=== PATIENT | female | born 1945 | race Caucasian/White ===

== ENCOUNTER 2019-06-02 10:33 | Emergency (ER) | payer OTHER | END 2019-06-02 13:39 | disposition home or self-care (01) | LOC: FER 10:33 ==

== ENCOUNTER 2019-10-03 12:21 | Inpatient (IN) | payer OTHER ==
--- NOTE | 2019-10-03 13:12 | PDOC ---
Attending Attestation - Resident Resident Name: Darryl Ko - HPI HPI: 10/03/19 13:39 Pt presents to the ED complaining of substernal, non radiating chest pain that is moderate in severity and worse with laying flat and exertion. Denies shortness of breath, light headness, fever, nausea or vomiting. Patient has a history of pericarditis and states that this pain is similar to her previous pain, but also took ASA last night because she was worried that she might be having an ND. - Physicial Exam PE: 10/03/19 13:43 Agree with resident exam. Patient is alert and oriented and in no acute distress. Lungs are clear. Heart has regular rate and rhythm without murmurs or rubs. Abdomen is soft, non tender, non distended without guarding or rebound. - Medical Decision Making 10/03/19 13:44 PT presents to the ED complaining of chest pain. Differential includes ACS, pericardititis, musculo skeletal chest pain, less likely PNA or PE. Will check labs and xray treat with ASA and reassess. EKG shows flipped T waves in v 2 and v 3. Will admit to medicine for rule out ACS.
[2019-10-03] MEDS ORDERED: ACETAMINOPHEN 325 MG TABLET (FP) PO ONE (13:20)
--- NOTE | 2019-10-03 13:21 | PDOC ---
History of Present Illness - General Chief Complaint: Chest Pain Stated Complaint: CHEST PAIN Time Seen by Provider: 10/03/19 13:04 History Source: Patient, Old Records Exam Limitations: No Limitations - History of Present Illness Initial Comments: HPI: 73 y/o female presenting to [facility] ER complaining of substernal and left anterolateral chest pain since last evening. Substernal chest pain has decreased in intensity since onset. Started at rest. Increases in intensity when laying flat, with deep inspiration, and with exertion. Denies trauma to the area. Associates shortness of breath and a two hour episode of chills and shaking last evening. Attempted relief last night with ASA and Tylenol w/ minimal relief. Additionally attempted relief this morning with Motrin w/ minimal relief. Pt has a remote h/o pericarditis. Believes pain feels somewhat similar. 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 Denies fevers Head- Denies vision changes ENMT- Denies sore throat CV- Per HPI Resp- Denies cough GI- Denies vomiting or diarrhea - Denies painful urination MSK- Denies recent trauma Skin- Denies new rashes Neuro- Denies new numbness or tingling or weakness Endocrine- Denies polyuria Heme- Denies bleeding or bruising Physical Exam: Vital signs and nursing notes reviewed. Constitutional- Well-developed, well-nourished adult female in no acute distress or obvious discomfort. Found semi-fowlers on hospital bed. Answered all questions appropriately and completely. Head- Normocephalic. No obvious external signs of trauma. Cardiovascular / Chest- Regular rate and regular rhythm. No murmur, rubs, clicks , or gallops. Peripheral pulses- radial pulses full. Diffuse tenderness to left anterolateral chest wall; no point tenderness, obvious bony deformity, or overlying skin changes. Midline post surgical scar. Respiratory- Breathing unlabored, but mildly tachypneic. Equal chest rise and fall. Clear to auscultation bilaterally. No stridor, no wheezing, no rhonchi. Gastrointestinal- abdomen is soft, non-tender, non-distended. Neuro- Alert and oriented x4. Moving all four extremities spontaneously. Skin- Warm, dry, and intact. Psych- Affect- appropriate. Mood- normal. Speech was non-labored, non- pressured. MDM: National Early Warning Score (NEWS) 2 RESULT SUMMARY: 2 points, Low risk INPUTS: Respiratory rate, breaths per minute > 2 = 21-24 Hypercapnic respiratory failure > 0 = No SpO? > 0 = ?96% Room air or supplemental O? > 0 = Room air Temperature > 0 = 36.1-38.0C (96.9-100.4F) Systolic BP, mmHg > 0 = 111-219 Pulse, beats per minute > 0 = 51-90 Consciousness > 0 = Alert 73 y/o female presenting with chest pain and shortness of breath. Afebrile. Vitals unremarkable for hypotension or tachycardia. Physical exam as described above. CXR revealed left lower lobe consolidation concerning for pneumonia per ED wet read. Radiology report pending. CBC revealed leukocytosis. CMP revealed elevated Cr suspicion for NITESH. Ordered IVFB, Ceftriaxone, and Azithromycin for abx coverage. Pt meets SIRS criteria, however her NEWS-2 score is low. Low suspicion for pending septic shock. Ordered lactic acid and blood cultures per protocol. Abx had already been administered at time of blood culture draw. 03 Oct 2019 14:59 PM Telephone discussion with Dr. Kim. Verbally appraised of the pts HPI, ED course, and current plan of management. Suggests pt should be admitted for IV abx therapy. 03 Oct 2019 15:35 PM Telephone discussion with ELIE Dunn . Verbally appraised of the pts HPI, ED course, and current plan of management. Will admit pt to med/ surg for attending Dr. Perkins. Initial lactic acid result pending. Darryl Ko M.D., PGY2 Emergency Medicine Resident Past History - Past Medical History Allergies/Adverse Reactions: Allergies Allergy/AdvReac Type Severity Reaction Status Date / Time No Known Drug Allergies Allergy Verified 10/03/19 14:39 Home Medications: Ambulatory Orders Valsartan [Diovan] 320 mg PO DAILY 12/06/12 Cholecalciferol (Vitamin D3) [Vitamin D] 50 mcg PO DAILY 07/31/14 Aspirin [Aspirin EC] 81 mg PO DAILY 06/02/19 Atorvastatin Ca [Lipitor] 20 mg PO DAILY 06/02/19 Metformin HCl [Glucophage] 1,000 mg PO BID 06/02/19 Ranitidine [Zantac -] 150 mg PO BID 06/02/19 Topiramate [Qudexy Xr] 50 mg PO BID 06/02/19 Furosemide [Lasix] 40 mg PO ASDIR 10/03/19 Nebivolol HCl [Bystolic] 10 mg PO DAILY 10/03/19 Potassium Chloride [K-Dur -] 10 meq PO ASDIR 10/03/19 Anemia: No Asthma: No Cancer: No Cardiac Disorders: Yes (A Flutter) CVA: No COPD: No CHF: No Dementia: No Diabetes: Yes GI Disorders: No Disorders: No HTN: Yes Hypercholesterolemia: No Liver Disease: No Seizures: No Thyroid Disease: No - Surgical History Abdominal Surgery: No Appendectomy: No Cardiac Surgery: Yes Cholecystectomy: Yes Lung Surgery: Yes (L LUNG BX) Neurologic Surgery: No Orthopedic Surgery: No - Immunization History Immunization Up to Date: Yes - Psycho Social/Smoking Cessation Hx Smoking Status: No Smoking History: Former smoker Have you smoked in the past 12 months: No Number of Cigarettes Smoked Daily: 0 If you are a former smoker, when did you quit?: 1994 Information on smoking cessation initiated: No Hx Alcohol Use: No Drug/Substance Use Hx: No Substance Use Type: None Hx Substance Use Treatment: No *Physical Exam - Vital Signs Last Vital Signs Temp Pulse Resp BP Pulse Ox 97.8 F 73 22 H 107/63 96 10/03/19 12:56 10/03/19 12:56 10/03/19 12:56 10/03/19 12:56 10/03/19 12:56 ED Treatment Course - LABORATORY CBC & Chemistry Diagram: 10/03/19 13:50 10/03/19 13:50 - RADIOLOGY Radiology Studies Ordered: Category Date Time Status CHEST PA & LAT [RAD] Stat Radiology 10/03/19 13:19 Ordered RIBS-LEFT SIDE [RAD] Stat Radiology 10/03/19 13:20 Ordered Discharge - Discharge Information Problems reviewed: Yes Clinical Impression/Diagnosis: SIRS (systemic inflammatory response syndrome), NITESH (acute kidney injury) Pneumonia Qualifiers: Pneumonia type: due to unspecified organism Laterality: left Lung location: lower lobe of lung Qualified Code(s): J18.9 - Pneumonia, unspecified organism Leukocytosis Qualifiers: Leukocytosis type: unspecified Qualified Code(s): D72.829 - Elevated white blood cell count, unspecified Condition: Stable - Admission Yes - Follow up/Referral Referrals: Iker Ferraro MD [Primary Care Provider] - - Patient Discharge Instructions - Post Discharge Activity
[2019-10-03] MEDS ORDERED: ASPIRIN 81 MG CHEWABLE TABLETS PO ONE (13:35)
[2019-10-03] MEDS ORDERED: ACETAMINOPHEN 325 MG TABLET (FP) ONE (13:35)
[2019-10-03] MEDS ORDERED: ASPIRIN 81 MG CHEWABLE TABLETS ONE (13:40)
[2019-10-03 14:19] LABS: BASO % 0.2 % (0-2.0); HEMATOCRIT 37.5 % (32.4-45.2); HEMOGLOBIN 12.2 GM/dL (10.7-15.3); LYMPH % 6.5 % (8-40); MCH 30.2 pg (25.7-33.7); MCHC 32.5 g/dl (32.0-36.0); MEAN PLT VOLUME 8.7 fl (7.5-11.1); MONO % 8.1 % (3.8-10.2); NEUT % 85.2 % (42.8-82.8); PLATELET COUNT 247 K/MM3 (134-434); RBC 4.03 M/mm3 (3.60-5.2); RDW 13.4 % (11.6-15.6); WHITE BLOOD COUNT 18.8 K/mm3 (4.0-10.0)
[2019-10-03 14:33] LABS: INR 1.6 (0.83-1.09)
[2019-10-03 14:35] LABS: ACTIVATED PTT 34.8 SECONDS (25.2-36.5)
[2019-10-03] MEDS ORDERED: AZITHROMYCIN IVPB 500 MG in DEXTROSE 5%-WATER - 250 ML IVPB ONE (14:42)
[2019-10-03] MEDS ORDERED: CEFTRIAXONE 1,000 MG in DEXTROSE 5%-WATER - 50 ML IVPB ONE (14:43)
[2019-10-03] MEDS ORDERED: CEFTRIAXONE 1 GM/50 ML BAG ONE (14:47)
[2019-10-03] MEDS ORDERED: AZITHROMYCIN IVPB 500 MG/250 ML BAG IVPB ONE (14:48)
[2019-10-03 14:50] LABS: ALBUMIN 3.3 g/dl (3.4-5.0); BILIRUBIN,TOTAL 0.6 mg/dL (0.2-1); BLOOD UREA NITROGEN 25.6 mg/dL (7-18); CALCIUM 10.1 mg/dL (8.5-10.1); CREATININE 1.5 mg/dL (0.55-1.3); MAGNESIUM 1.7 mg/dL (1.8-2.4); PHOSPHOROUS 1.8 mg/dL (2.5-4.9); POTASSIUM 4.2 mmol/L (3.5-5.1); TOT PROT 6.4 g/dl (6.4-8.2)
[2019-10-03] MEDS ORDERED: SODIUM CHLORIDE 0.9% 500 ML INFUS.BAG IV ONE ×2 (14:56→15:12)
[2019-10-03 16:17] LABS: ERYTHROCYTE SEDIMENTATION RATE 44 mm/hr (0-30)
--- NOTE | 2019-10-03 17:47 | HP ---
CHIEF COMPLAINT: shortness of breath with inspiration and physical activity, shaking chills and malaise at home PCP: Dr. Ferraro PCP Dr. Shannon, parts room associate HISTORY OF PRESENT ILLNESS: Patient is a 73 year old female with a significant past medical history of hypertension, left lung mass s/p biopsy 10 years ago, diabetes, remote history of pericarditis. She presents to the ED today with complaints of substernal and left anterlateral chest pain since last night. Patient states her chest pain increases when laying flat, and with deep inspiration. She denies trauma. Reports shaking chills last evening, tried OTC medications without relief (ASA , Tylenol). She reports dyspnea with physical exertion and discomfort when taking in a deep breath. Chest xray on admission shows large left pleural effusion, a chest CT is ordered to further evaluate. ER course was notable for: (1) lactc acid 3.5, wbc 18.8 (2) chest xray with large left pleural effusion, for chest ct (3) hypotension @ 90/60s in the ED - given ceftriaxone, azithromycin (4) NITESH 25/1.5 Recent Travel: none PAST MEDICAL HISTORY: hypertension, left lung mass s/p biopsy 10 years ago, diabetes, remote history of pericarditis. Social History: Smoking: former smoker, quit 20 years ago Alcohol: denies Drugs: denies Allergies No Known Drug Allergies Allergy (Verified 10/03/19 14:39) HOME MEDICATIONS: Home Medications Medication Instructions Recorded Valsartan [Diovan] 320 mg PO DAILY 12/06/12 Cholecalciferol (Vitamin D3) 50 mcg PO DAILY 07/31/14 [Vitamin D] Aspirin [Aspirin EC] 81 mg PO DAILY 06/02/19 Atorvastatin Ca [Lipitor] 20 mg PO DAILY 06/02/19 Metformin HCl [Glucophage] 1,000 mg PO BID 06/02/19 Ranitidine [Zantac -] 150 mg PO BID 06/02/19 Topiramate [Qudexy Xr] 50 mg PO BID 06/02/19 Furosemide [Lasix] 40 mg PO ASDIR 10/03/19 Nebivolol HCl [Bystolic] 10 mg PO DAILY 10/03/19 Potassium Chloride [K-Dur -] 10 meq PO ASDIR 10/03/19 REVIEW OF SYSTEMS CONSTITUTIONAL: Absent: fever, diaphoresis, loss of appetite, weight change HEENT: Absent: rhinorrhea, nasal congestion, throat pain, throat swelling, difficulty swallowing, mouth swelling, ear pain, eye pain, visual changes CARDIOVASCULAR: Absent: syncope, palpitations, irregular heart rate, lightheadedness, peripheral edema RESPIRATORY: Absent: cough, shortness of breath, dyspnea with exertion, orthopnea, wheezing, stridor, hemoptysis GASTROINTESTINAL: Absent: abdominal pain, abdominal distension, nausea, vomiting, diarrhea, constipation, melena, hematochezia GENITOURINARY: Absent: dysuria, frequency, urgency, hesitancy, hematuria, flank pain, genital pain MUSCULOSKELETAL: Absent: myalgia, arthralgia, joint swelling, back pain, neck pain SKIN: Absent: rash, itching, pallor HEMATOLOGIC/IMMUNOLOGIC: Absent: easy bleeding, easy bruising, lymphadenopathy, frequent infections ENDOCRINE: Absent: unexplained weight gain, unexplained weight loss, heat intolerance, cold intolerance NEUROLOGIC: Absent: headache, focal weakness or paresthesias, dizziness, unsteady gait, seizure, mental status changes, bladder or bowel incontinence PSYCHIATRIC: Absent: anxiety, depression, suicidal or homicidal ideation, hallucinations. PHYSICAL EXAMINATION Vital Signs - 24 hr 10/03/19 10/03/19 10/03/19 12:56 14:28 15:55 Temperature 97.8 F 97.6 F Pulse Rate 66 66 Pulse Rate [ 73 66 Left Radial] Respiratory 22 H 22 H Rate Blood Pressure 107/63 Blood Pressure 107/63 93/34 L [Right Arm] O2 Sat by Pulse 96 96 98 Oximetry (%) 10/03/19 17:06 Temperature 98.5 F Pulse Rate Pulse Rate [ 66 Left Radial] Respiratory 19 Rate Blood Pressure Blood Pressure 93/37 L [Right Arm] O2 Sat by Pulse 99 Oximetry (%) GENERAL: Awake, alert, and fully oriented, in no acute distress. tolerating room air. HEAD: Normal with no signs of trauma. EYES: Pupils equal, round and reactive to light, extraocular movements intact, sclera anicteric, conjunctiva clear. No lid lag. EARS, NOSE, THROAT: Ears normal, nares patent, oropharynx clear without exudates. Moist mucous membranes. NECK: Normal range of motion, supple without lymphadenopathy, JVD, or masses. LUNGS: left lung diminished, right lung clear to auscultation, tolerating room air. in respiratory distress noted. HEART: Regular rate and rhythm ABDOMEN: Soft, nontender, not distended, normoactive bowel sounds, no guarding, no rebound, no masses. No hepatomegaly or splenomegaly. MUSCULOSKELETAL: No CVA tenderness. UPPER EXTREMITIES: No clubbing. No peripheral edema. LOWER EXTREMITIES: No calf tenderness. No peripheral edema. NEUROLOGICAL: Normal speech. Normal gait. PSYCHIATRIC: Cooperative. Good eye contact. Appropriate mood and affect. SKIN: Warm, dry, normal turgor, no rashes or lesions noted, normal capillary refill. Laboratory Results - last 24 hr 10/03/19 10/03/19 10/03/19 13:50 13:50 13:50 WBC 18.8 H RBC 4.03 Hgb 12.2 Hct 37.5 MCV 93.0 MCH 30.2 MCHC 32.5 RDW 13.4 Plt Count 247 D MPV 8.7 Absolute Neuts (auto) 16.0 H Neutrophils % 85.2 H Lymphocytes % 6.5 L D Monocytes % 8.1 Eosinophils % 0.0 D Basophils % 0.2 Nucleated RBC % 0 ESR 44 H PT with INR INR PTT (Actin FS) Sodium 140 Potassium 4.2 Chloride 108 H Carbon Dioxide 22 Anion Gap 10 BUN 25.6 H Creatinine 1.5 H Est GFR (CKD-EPI)AfAm 40.20 Est GFR (CKD-EPI)NonAf 34.69 Random Glucose 108 H Lactic Acid Calcium 10.1 Phosphorus 1.8 L Magnesium 1.7 L Total Bilirubin 0.6 AST 14 L ALT 13 Alkaline Phosphatase 63 Creatine Kinase 36 Troponin I < 0.02 C-Reactive Protein Total Protein 6.4 Albumin 3.3 L 10/03/19 10/03/19 10/03/19 13:50 13:50 15:30 WBC RBC Hgb Hct MCV MCH MCHC RDW Plt Count MPV Absolute Neuts (auto) Neutrophils % Lymphocytes % Monocytes % Eosinophils % Basophils % Nucleated RBC % ESR PT with INR 19.00 H INR 1.60 H PTT (Actin FS) 34.8 Sodium Potassium Chloride Carbon Dioxide Anion Gap BUN Creatinine Est GFR (CKD-EPI)AfAm Est GFR (CKD-EPI)NonAf Random Glucose Lactic Acid 3.5 H* Calcium Phosphorus Magnesium Total Bilirubin AST ALT Alkaline Phosphatase Creatine Kinase Troponin I C-Reactive Protein 22.5 H Total Protein Albumin ASSESSMENT/PLAN: Problem List - Problem (1) Pneumonia Assessment/Plan: patient with shortness of breath, dyspnea on exertion, shaking chills and elevated WBC @ 18.8 for a chest to rule out/rule in pneumonia on emperic ceftriaxone and azithromycin monitor airway, tolerating room air currently. Code(s): J18.9 - PNEUMONIA, UNSPECIFIED ORGANISM Qualifiers: Pneumonia type: due to unspecified organism Laterality: left Lung location: lower lobe of lung Qualified Code(s): J18.9 - Pneumonia, unspecified organism (2) SIRS (systemic inflammatory response syndrome) Assessment/Plan: wbc elevated with shaking chills at home, possible left pneumonia on imaging, elevated lactic acid on ceftriaxone and azithromycin pulmonary consulted Code(s): R65.10 - SIRS OF NON-INFECTIOUS ORIGIN W/O ACUTE ORGAN DYSFUNCTION (3) Hypotension Assessment/Plan: Patient with a history of hypertension and takes diovan 320 and bystolic 10. BP medications are being held secondary to hypotension. Restart medications once BP stablizes. Code(s): I95.9 - HYPOTENSION, UNSPECIFIED (4) NITESH (acute kidney injury) Assessment/Plan: monitor kidney function daily renal dose medications Code(s): N17.9 - ACUTE KIDNEY FAILURE, UNSPECIFIED (5) Leukocytosis Assessment/Plan: WBC 18.8, chest xray with large left pleural effusion. for a chest ct given ceftriaxone and azithromycin in the ED. Will continu antibiotics pending ID recommendations. Qualifiers: Leukocytosis type: unspecified Qualified Code(s): D72.829 - Elevated white blood cell count, unspecified (6) Diabetes Assessment/Plan: monitor bgms ac/hs glucs with novolog coverage a1c in a.m. Code(s): E11.9 - TYPE 2 DIABETES MELLITUS WITHOUT COMPLICATIONS (7) Prophylactic measure Assessment/Plan: fen tolerating po monitor electrolytes/mag diabetic diet dvt prophy heparin bid full code Code(s): Z29.9 - ENCOUNTER FOR PROPHYLACTIC MEASURES, UNSPECIFIED Visit type - Emergency Visit Emergency Visit: Yes ED Registration Date: 10/03/19 Care time: The patient presented to the Emergency Department on the above date and was hospitalized for further evaluation of their emergent condition. - New Patient This patient is new to me today: Yes Date on this admission: 10/03/19 - Critical Care Critical Care patient: No
[2019-10-03] MEDS ORDERED: MAGNESIUM OXIDE 400 MG TABLET (FP) PO ONE (18:32)
[2019-10-03 18:37] VITALS: BMI 30.3
[2019-10-03] MEDS ORDERED: ACETAMINOPHEN 1000 MG/100 ML VIAL (NON FORMULARY) IVPB ONE (21:01)
[2019-10-03] MEDS: ATORVASTATIN CA 20 MG TABLET (FP) PO SCH (21:28)
[2019-10-03] MEDS: HEPARIN NA (PORCINE) 5,000 UNITS/ML 1ML VIAL SQ SCH (21:28)
[2019-10-03] MEDS: FAMOTIDINE 20 MG TABLET PO SCH (21:29)
[2019-10-03] MEDS: INSULIN SLIDING SCALE (NOVOLOG) 1 VIAL SQ SCH (21:38)
[2019-10-03] MEDS ORDERED: TOPIRAMATE 50 MG PO SCH (22:00)
[2019-10-03] MEDS ORDERED: SODIUM CHLORIDE 1,000 ML IV SCH (23:00)
[2019-10-04] MEDS ORDERED: PIPERACILLIN/TAZOBACTAM 3.375 GM VIAL IVPB ONE ×2 (01:36→09:34)
[2019-10-04] MEDS ORDERED: DEXTROSE 5%-WATER - 50 ML IVPB ONE ×3 (01:37→14:41)
[2019-10-04] MEDS: PIPERACILLIN/TAZOB 3.375 GM 3.375 GM in DEXTROSE 5%-WATER - 50 ML IVPB SCH ×2 (02:27→09:40)
[2019-10-04] MEDS: ACETAMINOPHEN 325 MG TABLET (FP) PO PRN (06:10)
[2019-10-04] MEDS: INSULIN SLIDING SCALE (NOVOLOG) 1 VIAL SQ SCH ×4 (06:30→22:05)
--- NOTE | 2019-10-04 08:07 | PN ---
Progress Note, Physician Chief Complaint: C/o substernal pain when coughing and inability to take deep breaths. But overall feels improved History of Present Illness: Patient is a 73 year old female with a significant past medical history of hypertension, left lung mass s/p biopsy 10 years ago, diabetes, remote history of pericarditis. She presents to the ED today with complaints of substernal and left anterlateral chest pain since last night. Patient states her chest pain increases when laying flat, and with deep inspiration. She denies trauma. Reports shaking chills last evening, tried OTC medications without relief (ASA , Tylenol). She reports dyspnea with physical exertion and discomfort when taking in a deep breath. Chest xray on admission shows large left pleural effusion, a chest CT is ordered to further evaluate. - Current Medication List Current Medications: Active Medications Acetaminophen (Tylenol -) 650 mg PO Q6H PRN PRN Reason: PAIN LEVEL 1-5 Last Admin: 10/04/19 06:10 Dose: 650 mg Aspirin (Ecotrin -) 81 mg PO DAILY [facility] Atorvastatin Calcium (Lipitor -) 20 mg PO HS [facility] Last Admin: 10/03/19 21:28 Dose: 20 mg Cholecalciferol (Vitamin D3 -) 2,000 unit PO DAILY [facility] Famotidine (Pepcid -) 20 mg PO BID [facility] Last Admin: 10/03/19 21:29 Dose: 20 mg Heparin Sodium (Porcine) (Heparin -) 5,000 unit SQ BID [facility] Last Admin: 10/03/19 21:28 Dose: 5,000 unit Azithromycin (Zithromax 500mg Ivpb (Pre-Docked)) 500 mg in 250 mls @ 250 mls/ hr IVPB DAILY [facility] Piperacillin Sod/Tazobactam (Sod 3.375 gm/ Dextrose) 50 mls @ 100 mls/hr IVPB Q8H-IV [facility]; Protocol Last Admin: 10/04/19 02:27 Dose: 100 mls/hr Sodium Chloride (Normal Saline -) 1,000 mls @ 50 mls/hr IV ASDIR [facility] Stop: 10/04/19 22:55 Last Admin: 10/03/19 23:02 Dose: 50 mls/hr Insulin Aspart (Novolog Vial Sliding Scale -) 1 vial SQ ACHS [facility]; Protocol Last Admin: 10/04/19 06:30 Dose: Not Given Non-Formulary Medication (Topiramate [Qudexy Xr]) 50 mg PO BID [facility] - Objective Vital Signs: Vital Signs Temperature 98.3 F 10/04/19 06:00 Pulse Rate 72 10/04/19 06:00 Respiratory Rate 20 10/04/19 06:00 Blood Pressure 117/48 L 10/04/19 06:00 O2 Sat by Pulse Oximetry (%) 100 10/03/19 22:00 Constitutional: Yes: Well Nourished, No Distress, Calm Eyes: Yes: WNL, Conjunctiva Clear HENT: Yes: WNL, Atraumatic, Normocephalic Neck: Yes: WNL, Supple, Trachea Midline Cardiovascular: Yes: WNL, Regular Rate and Rhythm Respiratory: Yes: Regular, CTA Bilaterally, Diminished (at bases) Gastrointestinal: Yes: WNL, Normal Bowel Sounds ...Rectal Exam: Yes: Deferred Genitourinary: Yes: WNL Breast(s): Yes: WNL Musculoskeletal: Yes: WNL Extremities: Yes: WNL Edema: Yes Edema: LLE: Trace, RLE: Trace Peripheral Pulses WNL: Yes Peripheral Pulses: Left Radial: 2+, Right Radial: 2+, Left Doralis Pedis: 2+, Right Dorsalis Pedis: 2+, Left Femoral: 2+, Right Femoral: 2+ Neurological: Yes: WNL, Alert, Oriented ...Motor Strength: WNL Psychiatric: Yes: WNL Labs: CBC, BMP 10/03/19 13:50 10/03/19 13:50 INR, PTT INR 1.60 (0.83-1.09) H 10/03/19 13:50 - ....Imaging Cat Scan: Report Reviewed (CT chest: pna LLL/HENRY, small pleural effusion) Problem List - Problems (1) Pleural effusion Assessment/Plan: small pleural effusion on CT recommended CT f/u in 3 months c/w home lasix dose 40mg M/W/Fr Code(s): J90 - PLEURAL EFFUSION, NOT ELSEWHERE CLASSIFIED (2) NITESH (acute kidney injury) Assessment/Plan: baseline cr 1.0-1.2 careful monitoring of Cr on diuretic therapy Code(s): N17.9 - ACUTE KIDNEY FAILURE, UNSPECIFIED (3) Diabetes Assessment/Plan: HgbA1C 5.8 BGM AC/HS with novolog sliding scale diabetic diet Code(s): E11.9 - TYPE 2 DIABETES MELLITUS WITHOUT COMPLICATIONS (4) Leukocytosis Assessment/Plan: WBC 18.8 yesterday, now 15.[address] with pna c/w ceftriaxone and azithromycin appreciate ID consult mick Walters pending Code(s): D72.829 - ELEVATED WHITE BLOOD CELL COUNT, UNSPECIFIED Qualifiers: Leukocytosis type: unspecified Qualified Code(s): D72.829 - Elevated white blood cell count, unspecified (5) Pneumonia Assessment/Plan: c/w abx inhaled bronchdilators supplemental O2 prn chest CP, encourage deep breathing and ambulation Code(s): J18.9 - PNEUMONIA, UNSPECIFIED ORGANISM Qualifiers: Pneumonia type: due to unspecified organism Laterality: left Lung location: lower lobe of lung Qualified Code(s): J18.9 - Pneumonia, unspecified organism (6) Prophylactic measure Assessment/Plan: FEN tolerating po monitor electrolytes/mag diabetic diet DFT heparin bid Dispo maintain as inpatient discharge planning full code Code(s): Z29.9 - ENCOUNTER FOR PROPHYLACTIC MEASURES, UNSPECIFIED (7) Hypertension Assessment/Plan: off BB normotensive continue to monitor Code(s): I10 - ESSENTIAL (PRIMARY) HYPERTENSION Visit type - Emergency Visit Emergency Visit: Yes ED Registration Date: 10/03/19 Care time: The patient presented to the Emergency Department on the above date and was hospitalized for further evaluation of their emergent condition. - New Patient This patient is new to me today: Yes Date on this admission: 10/04/19 - Critical Care Critical Care patient: No - Discharge Referral Referred to [facility] No
[2019-10-04 08:56] LABS: HEMOGLOBIN 11.1 GM/dL (10.7-15.3); MCH 30.2 pg (25.7-33.7); MCHC 32.7 g/dl (32.0-36.0); MEAN CELL VOLUME 92.3 fl (80-96); MEAN PLT VOLUME 8.7 fl (7.5-11.1); PLATELET COUNT 248 K/MM3 (134-434); RBC 3.68 M/mm3 (3.60-5.2); RDW 13.5 % (11.6-15.6); WHITE BLOOD COUNT 15.7 K/mm3 (4.0-10.0)
[2019-10-04 09:36] LABS: ALBUMIN 2.8 g/dl (3.4-5.0); BILIRUBIN,TOTAL 0.7 mg/dL (0.2-1); BLOOD UREA NITROGEN 28.7 mg/dL (7-18); CALCIUM 9.7 mg/dL (8.5-10.1); CREATININE 1.5 mg/dL (0.55-1.3); MAGNESIUM 1.8 mg/dL (1.8-2.4); POTASSIUM 3.9 mmol/L (3.5-5.1); TOT PROT 5.8 g/dl (6.4-8.2)
[2019-10-04] MEDS: CHOLECALCIFEROL (VIT D3) 1,000 UNIT (25 MCG) TABLET PO SCH (09:38)
[2019-10-04] MEDS: ASPIRIN COATED 81 MG TABLET.EC PO SCH (09:38)
[2019-10-04] MEDS: HEPARIN NA (PORCINE) 5,000 UNITS/ML 1ML VIAL SQ SCH ×2 (09:39→22:05)
--- NOTE | 2019-10-04 09:47 | EKG ---
Test Reason : Blood Pressure : / mmHG Vent. Rate : 072 BPM Atrial Rate : 072 BPM P-R Int : 166 ms QRS Dur : 088 ms QT Int : 392 ms P-R-T Axes : 055 069 038 degrees QTc Int : 429 ms SINUS RHYTHM WITH OCCASIONAL PREMATURE VENTRICULAR COMPLEXES POSSIBLE LEFT ATRIAL ENLARGEMENT ABNORMAL ECG WHEN COMPARED WITH ECG OF 31-JUL-2014 10:10, PREMATURE VENTRICULAR COMPLEXES ARE NOW PRESENT CRITERIA FOR INFERIOR INFARCT ARE NO LONGER PRESENT T WAVE INVERSION MORE EVIDENT IN ANTERIOR LEADS Confirmed by MD Nahum, Jaime ([id number]) on 10/04/2019 9:47:17 AM Referred By: Confirmed By:Jaime Sidhu MD
[2019-10-04] MEDS: FAMOTIDINE 20 MG TABLET PO SCH ×2 (09:58→22:05)
[2019-10-04] MEDS ORDERED: CEFTRIAXONE 1 GM in DEXTROSE 5%-WATER - 50 ML IVPB SCH (10:00)
[2019-10-04] MEDS ORDERED: VALSARTAN 160 MG TABLET (UD) PO SCH ×2 (10:00)
[2019-10-04] MEDS ORDERED: NEBIVOLOL 10 MG TABLET (FP) PO SCH ×2 (10:00)
--- NOTE | 2019-10-04 10:35 | ECHO ---
Version: 1 Name: KESHAV SPEARS Exam: Adult Echocardiogram Study Date: 10/04/2019, 8:24 AM Age: 73 Years MMode/2D Measurements & Calculations IVSd: 0.97 cm LVIDs: 2.5 cm LVIDd: 4.1 cm LVPWd: 1.00 cm LAV (MOD-bp): 60.0 ml LVOT diam: 1.85 cm Ao root diam: 2.37 cm LA dimension: 2.9 cm Doppler Measurements & Calculations MV E max vamsi: 97.2 cm/sec Med E/e': 14.8 MV A max vamsi: 75.0 cm/sec Med Peak E' Vamsi: 6.6 cm/sec MV E/A: 1.30 Lat E/e': 12.7 Lat Peak E' Vamsi: 7.7 cm/sec MR max P.6 mmHg Ao max P.8 mmHg Ao V2 max: 171.6 cm/sec PI end-d vamsi: 84.2 cm/sec TR max vamsi: 270.6 cm/sec TR max P.3 mmHg Left Ventricle The left ventricular size, thickness and function are normal. Ejection Fraction = 65%. E/A reversal consistent with but not diagnostic of poor LV compliance. The left ventricular wall motion is normal . Right Ventricle The right ventricle is normal in size and function. Atria Normal left and right atrial size and function. Mitral Valve The mitral valve is normal in structure and function. There is trace mitral regurgitation. Tricuspid Valve The tricuspid valve is normal in structure and function. Right ventricular systolic pressure is 29 m mhg. There is trace tricuspid regurgitation. Aortic Valve There is trivial aortic valve thickening. Pulmonic Valve The pulmonic valve is not well visualized. Trace pulmonic valvular regurgitation. Great Vessels The aortic root is normal size. Pericardium/Pleura There is no pericardial effusion. There is no pleural effusion. Summary Statements The left ventricular size, thickness and function are normal Ejection Fraction = 65%. The right ventricle is normal in size and function. There is trace mitral regurgitation. There is trace tricuspid regurgitation. Right ventricular systolic pressure is 29 mmhg. There is trivial aortic valve thickening. Trace pulmonic valvular regurgitation. MD Brian Grant 10/04/2019, 10:34 AM Ordering Physician: Alfa Millan Referring Physician: ALFA MILLAN Performed By: Ariella Marcos
[2019-10-04] MEDS: traMADol HCL 50 MG TABLET PO PRN ×2 (11:27→22:09)
--- NOTE | 2019-10-04 11:40 | CON.PULM ---
Consult Consult Specialty:: PULMONARY Referred by:: ELIE Valdes Reason for Consultation:: pneumonia - History of Present Illness Chief Complaint: chest pain History of Present Illness: 73yo female with h/o HTN, lung nodule, DM who was admitted with left sided chest pain. Reports pain is sharp, worse with deep inspiration. Also with shortness of breath given inability to take a deep breath. No fevers but with shaking chills. No cough or wheezing. CXR and CT chest showing left sided consolidations. No sick contacts or recent travel. Hypotensive in the ED, responded to IVF resuscitation. - History Source History Provided By: Patient, Medical Record Limitations to Obtaining History: No Limitations - Past Medical History ...: No - Alcohol/Substance Use Hx Alcohol Use: No - Smoking History Smoking history: Former smoker Have you smoked in the past 12 months: No Aproximately how many cigarettes per day: 0 If you are a former smoker, when did you quit?: 1994 Home Medications - Allergies Allergies/Adverse Reactions: Allergies Allergy/AdvReac Type Severity Reaction Status Date / Time No Known Drug Allergies Allergy Verified 10/03/19 14:39 - Home Medications Home Medications: Ambulatory Orders Valsartan [Diovan] 320 mg PO DAILY 12/06/12 Cholecalciferol (Vitamin D3) [Vitamin D] 50 mcg PO DAILY 07/31/14 Aspirin [Aspirin EC] 81 mg PO DAILY 06/02/19 Atorvastatin Ca [Lipitor] 20 mg PO DAILY 06/02/19 Metformin HCl [Glucophage] 1,000 mg PO BID 06/02/19 Ranitidine [Zantac -] 150 mg PO BID 06/02/19 Topiramate [Qudexy Xr] 50 mg PO BID 06/02/19 Furosemide [Lasix] 40 mg PO ASDIR 10/03/19 Nebivolol HCl [Bystolic] 10 mg PO DAILY 10/03/19 Potassium Chloride [K-Dur -] 10 meq PO ASDIR 10/03/19 Review of Systems - Review of Systems Constitutional: reports: Chills, Weakness. denies: Fever Eyes: denies: Recent Change in Vision HENT: denies: Nasal Congestion, Throat Pain Neck: denies: Stiffness, Tenderness Cardiovascular: reports: Chest Pain, Shortness of Breath. denies: Edema, Palpitations Respiratory: reports: SOB. denies: Cough, Hemoptysis, Wheezing Gastrointestinal: denies: Abdominal Pain, Nausea, Vomiting Genitourinary: denies: Dysuria, Hematuria Neurological: denies: Dizziness, Headache Endocrine: denies: Unexplained Weight Loss Physical Exam Vital Sings: Vital Signs Temperature 98.3 F 10/04/19 06:00 Pulse Rate 72 10/04/19 06:00 Respiratory Rate 20 10/04/19 06:00 Blood Pressure 117/48 L 10/04/19 06:00 O2 Sat by Pulse Oximetry (%) 100 10/03/19 22:00 Constitutional: Yes: Calm Eyes: Yes: Conjunctiva Clear, EOM Intact HENT: Yes: Atraumatic, Normocephalic Neck: Yes: Supple, Trachea Midline Cardiovascular: Yes: Regular Rate and Rhythm Respiratory: Yes: Diminished (decreased breath sounds at the bases) ...Clubbing: No Gastrointestinal: Yes: Normal Bowel Sounds, Soft. No: Tenderness Edema: No Labs: CBC, BMP 10/04/19 08:00 10/04/19 08:00 Imaging - Results Chest X-ray: Report Reviewed, Image Reviewed Cat Scan: Report Reviewed, Image Reviewed (left sided consolidations, RLL nodules) Problem List - Problems (1) Pneumonia Code(s): J18.9 - PNEUMONIA, UNSPECIFIED ORGANISM Qualifiers: Pneumonia type: due to unspecified organism Laterality: left Lung location: lower lobe of lung Qualified Code(s): J18.9 - Pneumonia, unspecified organism Assessment/Plan Pneumonia Sepsis Lactic Acidosis Acute Kidney Injury HTN DM Hyperlipidemia Lung Nodules - IV antibiotics - f/u cultures - IVF - monitor urine output, creatinine - pain control - O2 as needed - will need outpt f/u of chest imaging in 6-8 weeks to ensure resolution of infiltrates - DVT prophylaxis Thank you for this consult Ziggy Mayberry MD
--- NOTE | 2019-10-04 12:19 | CON.ID ---
Consult - History of Present Illness History of Present Illness: 73 y.o. female with PMH of Pericarditis, s/p lung biopsy and thoracotomy, thymoma s/p resection, HTN, GERD , denies DM but started on Metformin for 60 lb weight gain, and chronic LBP presented to the ER with c/o chest pain. She states that while at rest she initially had an episode of chills 2 days ago and subsequently developed chest pain especially with deep inhalation located substernally and Lt upper back not improved with ASA and motrin. Denies any fevers, cough/sputum production, sore throat. She has had no sick contacts or recent travel. Denies any recent antibiotic use. In the ER she was noted to be slightly tachypneic with temp of 100.4F and episode of hypotension. Her wbc noted to be elevated (18.8K) as well as her lactic acid level (3.5), and renal impairment. Chest imaging revealed Lt sided infiltrates and small Lt pleural effusion. She was started on IV fluids and empiric antibiotics. Currently states she feels better and CP relieved with Toradol. Denies abd pain/n/v/d, urinary f/u/d. - History Source History Provided By: Patient Limitations to Obtaining History: No Limitations - Past Medical History Cardio/Vascular: Yes: HTN, Other (Pericarditis ) Pulmonary: Yes: Other (Lt lung Bx / thoracentesis) ...: No - Past Surgical History Past Surgical History: Yes: Cholecystectomy Additional Surgical History: Thymoma s/p resection - Alcohol/Substance Use Hx Alcohol Use: No - Smoking History Smoking history: Former smoker Have you smoked in the past 12 months: No Aproximately how many cigarettes per day: 0 If you are a former smoker, when did you quit?: 1994 - Social History Usual Living Arrangement: With Spouse ADL: Independent History of Recent Travel: No Home Medications - Allergies Allergies/Adverse Reactions: Allergies Allergy/AdvReac Type Severity Reaction Status Date / Time No Known Drug Allergies Allergy Verified 10/03/19 14:39 - Home Medications Home Medications: Ambulatory Orders Valsartan [Diovan] 320 mg PO DAILY 12/06/12 Cholecalciferol (Vitamin D3) [Vitamin D] 50 mcg PO DAILY 07/31/14 Aspirin [Aspirin EC] 81 mg PO DAILY 06/02/19 Atorvastatin Ca [Lipitor] 20 mg PO DAILY 06/02/19 Metformin HCl [Glucophage] 1,000 mg PO BID 06/02/19 Ranitidine [Zantac -] 150 mg PO BID 06/02/19 Topiramate [Qudexy Xr] 50 mg PO BID 06/02/19 Furosemide [Lasix] 40 mg PO ASDIR 10/03/19 Nebivolol HCl [Bystolic] 10 mg PO DAILY 10/03/19 Potassium Chloride [K-Dur -] 10 meq PO ASDIR 10/03/19 Review of Systems - Review of Systems Constitutional: reports: No Symptoms. denies: Chills, Diaphoresis, Fever, Lethargy, Loss of Appetite, Malaise, Night Sweats, Unintentional Wgt. Loss, Weakness, Other Eyes: reports: No Symptoms. denies: Blind Spots, Blurred Vision, Double Vision , Eye Pain, Floaters, Photophobia, Recent Change in Vision, Other HENT: reports: No Symptoms. denies: Difficult Swallowing, Ear Discharge, Ear Pain, Epistaxis, Gingival Bleeding, Hearing Loss, Mouth Swelling, Nasal Congestion, Ocular Prosthesis, Throat Pain, Toothache, Ringing in Ears, Other Neck: reports: No Symptoms. denies: Decreased ROM, Lumps, Pain on Movement, Stiffness, Swollen Glands, Tenderness, Other Cardiovascular: reports: Chest Pain Gastrointestinal: reports: No Symptoms. denies: Abdominal Pain, Bloating, Constipation, Diarrhea, Dysphagia, Indigestion, Melena, Nausea, Rectal Bleeding , Vomiting, Vomiting Blood, Other Genitourinary: reports: No Symptoms. denies: Burning, Discharge, Dysuria, Flank Pain, Frequency, Hematuria, Incontinence, Lesions, Menses, Pain, Testicular Mass, Testicular Pain, Testicular Swelling, Urgency, Vaginal Bleeding , Other Breasts: reports: No Symptoms Reported. denies: See HPI, Breast Implants, Discharge from Nipple, Lumps, Pain, Skin Changes, Other Musculoskeletal: reports: No Symptoms. denies: Back Pain, Crepitus, Decreased ROM, Extremity Pain, Joint Pain, Joint Swelling, Muscle Pain, Muscle Cramps, Muscle Weakness, Other Integumentary: reports: No Symptoms. denies: Blister, Bruising, Change in Color , Eczema, Erythema, Incision, Lesions, Lump, Pallor, Pruritis, Rash, Wound, Other Neurological: reports: No Symptoms. denies: Change in LOC, Change in Speech, Confusion, Dizziness, Headache, Incoordination, Numbness, Parasthesia, Pre- Existing Deficit, Seizure, Syncope, Tremors, Unsteady Gait, Weakness, Other Endocrine: reports: No Symptoms. denies: Excessive Sweating, Flushing, Increased Hunger, Increased Thirst, Intolerance to Cold, Intolerance to Heat, Unexplained Weight Gain, Unexplained Weight Loss, Other Hematology/Lymphatic: reports: No Symptoms. denies: Easily Bruised, Excessive Bleeding, Swollen Glands, Other Psychiatric: reports: No Symptoms. denies: Altered Sleep Pattern, Anxiety, Depression, Hallucinations, Panic, Paranoia, Suicidal, Other Physical Exam Vital Signs: Vital Signs Temperature 97.6 F 10/04/19 09:00 Pulse Rate 65 10/04/19 09:00 Respiratory Rate 20 10/04/19 09:00 Blood Pressure 139/62 10/04/19 09:00 O2 Sat by Pulse Oximetry (%) 99 10/04/19 09:00 Constitutional: Yes: Well Nourished, No Distress, Calm Eyes: Yes: Conjunctiva Clear, EOM Intact, PERRL HENT: Yes: Atraumatic, Normocephalic Neck: Yes: Supple Cardiovascular: Yes: Regular Rate and Rhythm Respiratory: Yes: Diminished (Lt side) Gastrointestinal: Yes: Normal Bowel Sounds, Soft Renal/: Yes: WNL Musculoskeletal: Yes: WNL Extremities: Yes: WNL Edema: No Peripheral Pulses WNL: Yes Integumentary: Yes: WNL Neurological: Yes: Alert, Oriented Psychiatric: Yes: Alert Labs: CBC, BMP 10/04/19 08:00 10/04/19 08:00 Laboratory Tests 10/03/19 10/03/19 10/03/19 13:50 13:50 13:50 WBC 18.8 H RBC 4.03 Hgb 12.2 Hct 37.5 MCV 93.0 MCH 30.2 MCHC 32.5 RDW 13.4 Plt Count 247 D MPV 8.7 Absolute Neuts (auto) 16.0 H Neutrophils % 85.2 H Lymphocytes % 6.5 L D Monocytes % 8.1 Eosinophils % 0.0 D Basophils % 0.2 Nucleated RBC % 0 ESR 44 H PT with INR INR PTT (Actin FS) Sodium 140 Potassium 4.2 Chloride 108 H Carbon Dioxide 22 Anion Gap 10 BUN 25.6 H Creatinine 1.5 H Est GFR (CKD-EPI)AfAm 40.20 Est GFR (CKD-EPI)NonAf 34.69 POC Glucometer Random Glucose 108 H Hemoglobin A1c % Lactic Acid Calcium 10.1 Phosphorus 1.8 L Magnesium 1.7 L Total Bilirubin 0.6 AST 14 L ALT 13 Alkaline Phosphatase 63 Creatine Kinase 36 Troponin I < 0.02 C-Reactive Protein Total Protein 6.4 Albumin 3.3 L 10/03/19 10/03/19 10/03/19 13:50 13:50 15:30 WBC RBC Hgb Hct MCV MCH MCHC RDW Plt Count MPV Absolute Neuts (auto) Neutrophils % Lymphocytes % Monocytes % Eosinophils % Basophils % Nucleated RBC % ESR PT with INR 19.00 H INR 1.60 H PTT (Actin FS) 34.8 Sodium Potassium Chloride Carbon Dioxide Anion Gap BUN Creatinine Est GFR (CKD-EPI)AfAm Est GFR (CKD-EPI)NonAf POC Glucometer Random Glucose Hemoglobin A1c % Lactic Acid 3.5 H* Calcium Phosphorus Magnesium Total Bilirubin AST ALT Alkaline Phosphatase Creatine Kinase Troponin I C-Reactive Protein 22.5 H Total Protein Albumin 10/03/19 10/03/19 10/04/19 20:35 21:37 06:29 WBC RBC Hgb Hct MCV MCH MCHC RDW Plt Count MPV Absolute Neuts (auto) Neutrophils % Lymphocytes % Monocytes % Eosinophils % Basophils % Nucleated RBC % ESR PT with INR INR PTT (Actin FS) Sodium Potassium Chloride Carbon Dioxide Anion Gap BUN Creatinine Est GFR (CKD-EPI)AfAm Est GFR (CKD-EPI)NonAf POC Glucometer 105 88 Random Glucose Hemoglobin A1c % Lactic Acid 2.8 H* Calcium Phosphorus Magnesium Total Bilirubin AST ALT Alkaline Phosphatase Creatine Kinase Troponin I C-Reactive Protein Total Protein Albumin 10/04/19 10/04/19 10/04/19 08:00 08:00 08:00 WBC 15.7 H RBC 3.68 Hgb 11.1 Hct 34.0 MCV 92.3 MCH 30.2 MCHC 32.7 RDW 13.5 Plt Count 248 MPV 8.7 Absolute Neuts (auto) Neutrophils % Lymphocytes % Monocytes % Eosinophils % Basophils % Nucleated RBC % ESR PT with INR INR PTT (Actin FS) Sodium 141 Potassium 3.9 Chloride 113 H Carbon Dioxide 20 L Anion Gap 8 BUN 28.7 H Creatinine 1.5 H Est GFR (CKD-EPI)AfAm 40.20 Est GFR (CKD-EPI)NonAf 34.69 POC Glucometer Random Glucose 88 Hemoglobin A1c % 5.8 Lactic Acid Calcium 9.7 Phosphorus Magnesium 1.8 Total Bilirubin 0.7 AST 10 L ALT 13 Alkaline Phosphatase 73 Creatine Kinase Troponin I C-Reactive Protein Total Protein 5.8 L Albumin 2.8 L 10/04/19 10:25 WBC RBC Hgb Hct MCV MCH MCHC RDW Plt Count MPV Absolute Neuts (auto) Neutrophils % Lymphocytes % Monocytes % Eosinophils % Basophils % Nucleated RBC % ESR PT with INR INR PTT (Actin FS) Sodium Potassium Chloride Carbon Dioxide Anion Gap BUN Creatinine Est GFR (CKD-EPI)AfAm Est GFR (CKD-EPI)NonAf POC Glucometer Random Glucose Hemoglobin A1c % Lactic Acid 1.6 Calcium Phosphorus Magnesium Total Bilirubin AST ALT Alkaline Phosphatase Creatine Kinase Troponin I C-Reactive Protein Total Protein Albumin Blood cultures - results pending Imaging - Results Chest X-ray: Report Reviewed Cat Scan: Report Reviewed Other: Other (Echo) Problem List - Problems (1) NITESH (acute kidney injury) Code(s): N17.9 - ACUTE KIDNEY FAILURE, UNSPECIFIED (2) Leukocytosis Code(s): D72.829 - ELEVATED WHITE BLOOD CELL COUNT, UNSPECIFIED Qualifiers: Leukocytosis type: unspecified Qualified Code(s): D72.829 - Elevated white blood cell count, unspecified (3) Pneumonia Code(s): J18.9 - PNEUMONIA, UNSPECIFIED ORGANISM Qualifiers: Pneumonia type: due to unspecified organism Laterality: left Lung location: lower lobe of lung Qualified Code(s): J18.9 - Pneumonia, unspecified organism (4) Hypertension Code(s): I10 - ESSENTIAL (PRIMARY) HYPERTENSION Assessment/Plan 73 y.o. female with PMH of Pericarditis, s/p lung biopsy and thoracotomy, thymoma s/p resection, HTN, GERD ,(denies DM but started on Metformin for 60 lb weight gain), and chronic LBP presented to the ER with c/o chest pain. PNA Sepsis Leukocytosis Lactic Acidosis Fever NITESH Hx of Pericarditis Hx of Thymoma HTN GERD Hx of Chronic LBP -- Will continue Ceftriaxone and Azithromycin empirically -- Follow up blood culture results -- send Urinary Ag -- Pt currently afebrile, leukocytosis and lactic acidosis resolved, and renal function improving -- Imaging studies noted -- hydration -- monitor wbc trend, renal function, and vitals Will follow Thank you
[2019-10-04] MEDS: AZITHROMYCIN IVPB 500 MG/250 ML BAG IVPB SCH (12:36)
--- NOTE | 2019-10-04 14:36 | CON.CARD ---
Consult Consult Specialty:: cardio - History of Present Illness Chief Complaint: cp History of Present Illness: 73 F here with CP. developed very strong, localized pleuritic CP in L upper pectoral region. radiates into thoracic cavity. imaging evidence here of HENRY and LLL pneumonia. she had chills x 1 at home, no fever, sob or cough pain improved slightly since here receiving abx PMH: HTN PSVT HPL remote pericarditis (possibly x 2) - Past Medical History Cardio/Vascular: Yes: HTN, Other (Pericarditis ) Pulmonary: Yes: Other (Lt lung Bx / thoracentesis) ...: No - Past Surgical History Past Surgical History: Yes: Cholecystectomy Additional Surgical History: Thymoma s/p resection - Alcohol/Substance Use Hx Alcohol Use: No - Smoking History Smoking history: Former smoker Have you smoked in the past 12 months: No Aproximately how many cigarettes per day: 0 If you are a former smoker, when did you quit?: 1994 - Social History Usual Living Arrangement: With Spouse ADL: Independent History of Recent Travel: No Home Medications - Allergies Allergies/Adverse Reactions: Allergies Allergy/AdvReac Type Severity Reaction Status Date / Time No Known Drug Allergies Allergy Verified 10/03/19 14:39 - Home Medications Home Medications: Ambulatory Orders Valsartan [Diovan] 320 mg PO DAILY 12/06/12 Cholecalciferol (Vitamin D3) [Vitamin D] 50 mcg PO DAILY 07/31/14 Aspirin [Aspirin EC] 81 mg PO DAILY 06/02/19 Atorvastatin Ca [Lipitor] 20 mg PO DAILY 06/02/19 Metformin HCl [Glucophage] 1,000 mg PO BID 06/02/19 Ranitidine [Zantac -] 150 mg PO BID 06/02/19 Topiramate [Qudexy Xr] 50 mg PO BID 06/02/19 Furosemide [Lasix] 40 mg PO ASDIR 10/03/19 Nebivolol HCl [Bystolic] 10 mg PO DAILY 10/03/19 Potassium Chloride [K-Dur -] 10 meq PO ASDIR 10/03/19 Family Medical History Family History: Denies (no known cmp) Review of Systems - Review of Systems Constitutional: denies: Fever, Malaise Eyes: denies: Eye Pain HENT: denies: Nasal Congestion Neck: denies: Stiffness Cardiovascular: denies: Palpitations Respiratory: denies: Orthopnea, PND Gastrointestinal: denies: Diarrhea, Rectal Bleeding Genitourinary: denies: Burning, Hematuria Musculoskeletal: denies: Muscle Pain Integumentary: denies: Rash Neurological: denies: Numbness, Seizure, Syncope Endocrine: denies: Excessive Sweating Hematology/Lymphatic: denies: Excessive Bleeding Vital Signs: Vital Signs Temperature 97.7 F 10/04/19 14:33 Pulse Rate 68 10/04/19 14:33 Respiratory Rate 20 10/04/19 14:33 Blood Pressure 107/51 L 10/04/19 14:33 O2 Sat by Pulse Oximetry (%) 100 10/04/19 13:00 Constitutional: Yes: Well Nourished, No Distress Eyes: No: Sclera Icterus HENT: No: Nasal Congestion Neck: No: Decreased ROM Respiratory: Yes: CTA Bilaterally, Diminished (L upper field). No: Accessory Muscle Use, Rales, Wheezes Gastrointestinal: Yes: Normal Bowel Sounds. No: Distention, Hepatomegaly, Palpable Mass, Tenderness Cardiovascular: Yes: Regular Rate and Rhythm. No: Rub JVD: No Carotid Bruit: No PMI: Non-Displaced Heart Sounds: Yes: S1, S2. No: Gallop Murmur: No: Systolic Murmur, Diastolic Murmur Musculoskeletal: Yes: Other (No kyphosis) Extremities: No: Cool, Cyanosis Edema: No Peripheral Pulses: 2+ Left Carotid, 2+ Right Carotid, 2+ Left Doralis Pedis, 2+ Right Dorsalis Pedis Integumentary: No: Jaundice Neurological: Yes: Alert, Oriented (x3) Psychiatric: No: Agitated - Other Data Labs, Other Data: CBC, BMP 10/04/19 08:00 10/04/19 08:00 INR, PTT INR 1.60 (0.83-1.09) H 10/03/19 13:50 Troponin, BNP 10/03/19 13:50 Troponin I < 0.02 Troponin, BNP 10/03/19 13:50 Troponin I < 0.02 Assessment/Plan ECG: NSR, NSST-Ts anterior leads--no signif change vs prior in office on 07/07 CT chest: HENRY and LLL pneumonia, nodules x 2 Echo 10/06: nl LV/EF. nl RV. nl valve fxn. no peric effusion PNA with pleuritic CP likely secondary to infectious pleurisy: -plan per pulm, ID -not concerning for pericarditis, echo no effusion -(trop neg, ECG no change vs baseline) NITESH: -? sepsis related -creat unchanged today--incr IVF rate 50 to 100cc/hr -otherwise, plan per primary Supraventricular tachycardia -NO RECENT RECURRENCES. -CONT HOME B-ROLO Essential hypertension -BP CONTROLLED -CONT HOME MEDS Emphysema -MILD CENTRILOBULAR COPD CHANGES ON CT SCAN; -PER PULM Pure hypercholesterolemia -CONT HOME ATORVA h/o pericarditis -EQUIVOCAL HX, WITH VERY BRIEF (1-2 DAYS) SX'S WHICH WERE ? SELF-LIMITED VS RESPONDED TO LOW DOSE OF PRN NSAIDS; MILDLY ELEVATED ESR/CRP AT THAT TIME-- NORMAL ON F/U LABS. -CARDIAC MRI 2012 WITH PERICARDIAL ENHANEMENT, WAS ASYMPTOMATIC THEN AND NO SX' S SINCE--ENHANCEMENT DECREASED (NOT RESOLVED) ON 6 MO F/U CMR STUDY. -NO FRICTION RUB, NO ECG CHANGES, NO PERIC EFFUSION--NO SUSPECTED ACTIVE PROCESS PRESENTLY, ABOVE
[2019-10-04] MEDS ORDERED: cefTRIAXone SODIUM 1 GM VIAL ONE (14:41)
[2019-10-04] MEDS ORDERED: SODIUM CHLORIDE 1,000 ML IV SCH (14:44)
[2019-10-04] MEDS: CEFTRIAXONE 1 GM in DEXTROSE 5%-WATER - 50 ML IVPB SCH (15:11)
[2019-10-04] MEDS: ATORVASTATIN CA 20 MG TABLET (FP) PO SCH (22:05)
[2019-10-05] MEDS: INSULIN SLIDING SCALE (NOVOLOG) 1 VIAL SQ SCH ×4 (06:03→22:25)
--- NOTE | 2019-10-05 08:02 | PN ---
Progress Note, Physician Chief Complaint: C/o substernal pain less today. Feels her legs are "puffy". Overall feels improved History of Present Illness: Patient is a 73 year old female with a significant past medical history of hypertension, left lung mass s/p biopsy 10 years ago, diabetes, remote history of pericarditis. She presents to the ED today with complaints of substernal and left anterlateral chest pain since last night. Patient states her chest pain increases when laying flat, and with deep inspiration. She denies trauma. Reports shaking chills last evening, tried OTC medications without relief (ASA , Tylenol). She reports dyspnea with physical exertion and discomfort when taking in a deep breath. Chest xray on admission shows large left pleural effusion, a chest CT is ordered to further evaluate. - Current Medication List Current Medications: Active Medications Acetaminophen (Tylenol -) 650 mg PO Q6H PRN PRN Reason: PAIN LEVEL 1-5 Last Admin: 10/04/19 06:10 Dose: 650 mg Aspirin (Ecotrin -) 81 mg PO DAILY [facility] Last Admin: 10/04/19 09:38 Dose: 81 mg Atorvastatin Calcium (Lipitor -) 20 mg PO HS [facility] Last Admin: 10/04/19 22:05 Dose: 20 mg Cholecalciferol (Vitamin D3 -) 2,000 unit PO DAILY [facility] Last Admin: 10/04/19 09:38 Dose: 2,000 unit Famotidine (Pepcid -) 20 mg PO BID [facility] Last Admin: 10/04/19 22:05 Dose: 20 mg Furosemide (Lasix -) 40 mg PO MoWeFr [facility] Heparin Sodium (Porcine) (Heparin -) 5,000 unit SQ BID [facility] Last Admin: 10/04/19 22:05 Dose: 5,000 unit Azithromycin (Zithromax 500mg Ivpb (Pre-Docked)) 500 mg in 250 mls @ 250 mls/ hr IVPB DAILY [facility] Last Admin: 10/04/19 12:36 Dose: 250 mls/hr Ceftriaxone Sodium 1 gm/ (Dextrose) 50 mls @ 200 mls/hr IVPB DAILY [facility]; Protocol Last Admin: 10/04/19 15:11 Dose: 200 mls/hr Insulin Aspart (Novolog Vial Sliding Scale -) 1 vial SQ ACHS [facility]; Protocol Last Admin: 10/05/19 06:03 Dose: Not Given Non-Formulary Medication (Topiramate [Qudexy Xr]) 50 mg PO BID [facility] Tramadol HCl (Ultram -) 50 mg PO Q8H PRN PRN Reason: PAIN LEVEL 6-10 Last Admin: 10/04/19 22:09 Dose: 50 mg - Objective Vital Signs: Vital Signs Temperature 98.5 F 10/05/19 06:21 Pulse Rate 66 10/05/19 06:21 Respiratory Rate 20 10/05/19 06:21 Blood Pressure 135/69 10/05/19 06:21 O2 Sat by Pulse Oximetry (%) 98 10/04/19 21:00 Additional Findings/Remarks: Constitutional: Yes: Well Nourished, No Distress, Calm Eyes: Yes: WNL, Conjunctiva Clear HENT: Yes: WNL, Atraumatic, Normocephalic Neck: Yes: WNL, Supple, Trachea Midline Cardiovascular: Yes: WNL, Regular Rate and Rhythm Respiratory: Yes: Regular, CTA Bilaterally, Diminished (at bases) Gastrointestinal: Yes: WNL, Normal Bowel Sounds ...Rectal Exam: Yes: Deferred Genitourinary: Yes: WNL Breast(s): Yes: WNL Musculoskeletal: Yes: WNL Extremities: Yes: WNL Edema: Yes Edema: LLE: Trace, RLE: Trace Peripheral Pulses WNL: Yes Peripheral Pulses: Left Radial: 2+, Right Radial: 2+, Left Doralis Pedis: 2+, Right Dorsalis Pedis: 2+, Left Femoral: 2+, Right Femoral: 2+ Neurological: Yes: WNL, Alert, Oriented ...Motor Strength: WNL Psychiatric: Yes: WNL Labs: Labs: CBC, BMP 10/04/19 08:00 10/04/19 08:00 INR, PTT INR 1.60 (0.83-1.09) H 10/03/19 13:50 Problem List - Problems (1) Pleural effusion Assessment/Plan: small pleural effusion on CT recommended CT f/u in 3 months c/w home lasix dose 40mg M/W/Fr Code(s): J90 - PLEURAL EFFUSION, NOT ELSEWHERE CLASSIFIED (2) NITESH (acute kidney injury) Assessment/Plan: baseline cr 1.0-1.2, now 1.2 careful monitoring of Cr on diuretic therapy Code(s): N17.9 - ACUTE KIDNEY FAILURE, UNSPECIFIED (3) Diabetes Assessment/Plan: HgbA1C 5.8 BGM AC/HS with novolog sliding scale diabetic diet Code(s): E11.9 - TYPE 2 DIABETES MELLITUS WITHOUT COMPLICATIONS (4) Leukocytosis Assessment/Plan: WBC 18.8 yesterday, now 8.[address] with pna c/w ceftriaxone and azithromycin appreciate ID consult leginella Ag negative Code(s): D72.829 - ELEVATED WHITE BLOOD CELL COUNT, UNSPECIFIED Qualifiers: Leukocytosis type: unspecified Qualified Code(s): D72.829 - Elevated white blood cell count, unspecified (5) Pneumonia Assessment/Plan: c/w abx inhaled bronchdilators supplemental O2 prn chest CP, encourage deep breathing and ambulation Code(s): J18.9 - PNEUMONIA, UNSPECIFIED ORGANISM Qualifiers: Pneumonia type: due to unspecified organism Laterality: left Lung location: lower lobe of lung Qualified Code(s): J18.9 - Pneumonia, unspecified organism (6) Prophylactic measure Assessment/Plan: FEN tolerating po monitor electrolytes/mag diabetic diet DVT heparin bid Dispo maintain as inpatient discharge planning full code Code(s): Z29.9 - ENCOUNTER FOR PROPHYLACTIC MEASURES, UNSPECIFIED (7) Hypertension Assessment/Plan: off BB, off diovan normotensive continue to monitor Code(s): I10 - ESSENTIAL (PRIMARY) HYPERTENSION Visit type - Emergency Visit Emergency Visit: Yes ED Registration Date: 10/03/19 Care time: The patient presented to the Emergency Department on the above date and was hospitalized for further evaluation of their emergent condition. - New Patient This patient is new to me today: No - Critical Care Critical Care patient: No - Discharge Referral Referred to [facility] No
[2019-10-05 08:14] LABS: BASO % 0.6 % (0-2.0); EOS % 1.6 % (0-4.5); HEMATOCRIT 28.8 % (32.4-45.2); HEMOGLOBIN 9.6 GM/dL (10.7-15.3); LYMPH % 14.8 % (8-40); MCH 30.6 pg (25.7-33.7); MCHC 33.4 g/dl (32.0-36.0); MEAN CELL VOLUME 91.6 fl (80-96); MEAN PLT VOLUME 8.6 fl (7.5-11.1); MONO % 6.1 % (3.8-10.2); NEUT % 76.9 % (42.8-82.8); PLATELET COUNT 212 K/MM3 (134-434); RBC 3.14 M/mm3 (3.60-5.2); RDW 13.1 % (11.6-15.6); WHITE BLOOD COUNT 8.9 K/mm3 (4.0-10.0)
[2019-10-05 08:38] LABS: ALBUMIN 2.3 g/dl (3.4-5.0); BILIRUBIN,TOTAL 0.3 mg/dL (0.2-1); BLOOD UREA NITROGEN 19.8 mg/dL (7-18); CREATININE 1.2 mg/dL (0.55-1.3); MAGNESIUM 1.9 mg/dL (1.8-2.4); POTASSIUM 3.8 mmol/L (3.5-5.1); TOT PROT 5.2 g/dl (6.4-8.2)
[2019-10-05] MEDS ORDERED: cefTRIAXone SODIUM 1 GM VIAL ONE (09:31)
[2019-10-05] MEDS ORDERED: DEXTROSE 5%-WATER - 50 ML IVPB ONE (09:31)
[2019-10-05] MEDS: ASPIRIN COATED 81 MG TABLET.EC PO SCH (09:36)
[2019-10-05] MEDS: traMADol HCL 50 MG TABLET PO PRN ×2 (09:37→17:22)
[2019-10-05] MEDS: FAMOTIDINE 20 MG TABLET PO SCH ×2 (09:37→22:25)
[2019-10-05] MEDS: CHOLECALCIFEROL (VIT D3) 1,000 UNIT (25 MCG) TABLET PO SCH (09:37)
[2019-10-05] MEDS: HEPARIN NA (PORCINE) 5,000 UNITS/ML 1ML VIAL SQ SCH ×2 (09:38→22:25)
[2019-10-05] MEDS: CEFTRIAXONE 1 GM in DEXTROSE 5%-WATER - 50 ML IVPB SCH (09:39)
[2019-10-05] MEDS: FUROSEMIDE 40 MG TABLET (FP) PO SCH (09:45)
[2019-10-05] MEDS: AZITHROMYCIN IVPB 500 MG/250 ML BAG IVPB SCH (09:53)
[2019-10-05] MEDS: ALBUTEROL SO4 2.5/IPRATROPIUM 0.5 INH SOL 3 ML VIAL.NEB. NEB PRN ×2 (11:30→19:14)
--- NOTE | 2019-10-05 12:57 | PN ---
Progress Note, Physician History of Present Illness: still having some pain while breathing otherwise stable - Current Medication List Current Medications: Active Medications Acetaminophen (Tylenol -) 650 mg PO Q6H PRN PRN Reason: PAIN LEVEL 1-5 Last Admin: 10/04/19 06:10 Dose: 650 mg Albuterol/Ipratropium (Duoneb -) 1 amp NEB Q6H PRN PRN Reason: SHORTNESS OF BREATH Aspirin (Ecotrin -) 81 mg PO DAILY [facility] [place] Last Admin: 10/05/19 09:36 Dose: 81 mg Atorvastatin Calcium (Lipitor -) 20 mg PO HS [facility] [place] Last Admin: 10/04/19 22:05 Dose: 20 mg Cholecalciferol (Vitamin D3 -) 2,000 unit PO DAILY [facility] [place] Last Admin: 10/05/19 09:37 Dose: 2,000 unit Famotidine (Pepcid -) 20 mg PO BID [facility] [place] Last Admin: 10/05/19 09:37 Dose: 20 mg Furosemide (Lasix -) 40 mg PO MoWeFr [facility] [place] Last Admin: 10/05/19 09:45 Dose: 40 mg Heparin Sodium (Porcine) (Heparin -) 5,000 unit SQ BID [facility] [place] Last Admin: 10/05/19 09:38 Dose: 5,000 unit Azithromycin (Zithromax 500mg Ivpb (Pre-Docked)) 500 mg in 250 mls @ 250 mls/ hr IVPB DAILY [facility] [place] Last Admin: 10/05/19 09:53 Dose: 250 mls/hr Ceftriaxone Sodium 1 gm/ (Dextrose) 50 mls @ 200 mls/hr IVPB DAILY [facility] [place]; Protocol Last Admin: 10/05/19 09:39 Dose: 200 mls/hr Insulin Aspart (Novolog Vial Sliding Scale -) 1 vial SQ ACHS [facility] [place]; Protocol Last Admin: 10/05/19 12:30 Dose: Not Given Non-Formulary Medication (Topiramate [Qudexy Xr]) 50 mg PO BID [facility] [place] Tramadol HCl (Ultram -) 50 mg PO Q8H PRN PRN Reason: PAIN LEVEL 6-10 Last Admin: 10/05/19 09:37 Dose: 50 mg - Objective Vital Signs: Vital Signs Temperature 99.6 F 10/05/19 09:09 Pulse Rate 67 10/05/19 09:09 Respiratory Rate 20 10/05/19 09:09 Blood Pressure 131/61 10/05/19 09:09 O2 Sat by Pulse Oximetry (%) 98 10/04/19 21:00 Constitutional: Yes: Calm, Mild Distress Cardiovascular: Yes: S1, S2 Respiratory: Yes: Regular, CTA Bilaterally Gastrointestinal: Yes: Normal Bowel Sounds, Soft Genitourinary: Yes: WNL Musculoskeletal: Yes: WNL Extremities: Yes: WNL Neurological: Yes: Alert, Oriented Psychiatric: Yes: Alert, Oriented Labs: CBC, BMP 10/05/19 07:10 10/05/19 07:10 INR, PTT INR 1.60 (0.83-1.09) H 10/03/19 13:50 Assessment/Plan Problem List - Problems (1) NITESH (acute kidney injury) Code(s): N17.9 - ACUTE KIDNEY FAILURE, UNSPECIFIED (2) Leukocytosis Code(s): D72.829 - ELEVATED WHITE BLOOD CELL COUNT, UNSPECIFIED Qualifiers: Leukocytosis type: unspecified Qualified Code(s): D72.829 - Elevated white blood cell count, unspecified (3) Pneumonia Code(s): J18.9 - PNEUMONIA, UNSPECIFIED ORGANISM Qualifiers: Pneumonia type: due to unspecified organism Laterality: left Lung location: lower lobe of lung Qualified Code(s): J18.9 - Pneumonia, unspecified organism (4) Hypertension Code(s): I10 - ESSENTIAL (PRIMARY) HYPERTENSION Assessment/Plan 73 y.o. female with PMH of Pericarditis, s/p lung biopsy and thoracotomy, thymoma s/p resection, HTN, GERD ,(denies DM but started on Metformin for 60 lb weight gain), and chronic LBP presented to the ER with c/o chest pain. PNA Sepsis Leukocytosis Lactic Acidosis Fever NITESH Hx of Pericarditis Hx of Thymoma HTN GERD Hx of Chronic LBP continue current mgmt consider antiinflammatory monitor closely wbc normalized
--- NOTE | 2019-10-05 15:23 | PN ---
Progress Note, Physician History of Present Illness: pulmonary alert,c/o left sided chest discomfort,-sob - Current Medication List Current Medications: Active Medications Acetaminophen (Tylenol -) 650 mg PO Q6H PRN PRN Reason: PAIN LEVEL 1-5 Last Admin: 10/04/19 06:10 Dose: 650 mg Albuterol/Ipratropium (Duoneb -) 1 amp NEB Q6H PRN PRN Reason: SHORTNESS OF BREATH Aspirin (Ecotrin -) 81 mg PO DAILY [facility] Last Admin: 10/05/19 09:36 Dose: 81 mg Atorvastatin Calcium (Lipitor -) 20 mg PO HS [facility] Last Admin: 10/04/19 22:05 Dose: 20 mg Cholecalciferol (Vitamin D3 -) 2,000 unit PO DAILY [facility] Last Admin: 10/05/19 09:37 Dose: 2,000 unit Famotidine (Pepcid -) 20 mg PO BID [facility] Last Admin: 10/05/19 09:37 Dose: 20 mg Furosemide (Lasix -) 40 mg PO MoWeFr [facility] Last Admin: 10/05/19 09:45 Dose: 40 mg Heparin Sodium (Porcine) (Heparin -) 5,000 unit SQ BID [facility] Last Admin: 10/05/19 09:38 Dose: 5,000 unit Azithromycin (Zithromax 500mg Ivpb (Pre-Docked)) 500 mg in 250 mls @ 250 mls/ hr IVPB DAILY [facility] Last Admin: 10/05/19 09:53 Dose: 250 mls/hr Ceftriaxone Sodium 1 gm/ (Dextrose) 50 mls @ 200 mls/hr IVPB DAILY [facility]; Protocol Last Admin: 10/05/19 09:39 Dose: 200 mls/hr Insulin Aspart (Novolog Vial Sliding Scale -) 1 vial SQ ACHS [facility]; Protocol Last Admin: 10/05/19 12:30 Dose: Not Given Non-Formulary Medication (Topiramate [Qudexy Xr]) 50 mg PO BID [facility] Tramadol HCl (Ultram -) 50 mg PO Q8H PRN PRN Reason: PAIN LEVEL 6-10 Last Admin: 10/05/19 09:37 Dose: 50 mg - Objective Vital Signs: Vital Signs Temperature 98.8 F 10/05/19 13:42 Pulse Rate 72 10/05/19 13:42 Respiratory Rate 20 10/05/19 13:42 Blood Pressure 118/52 L 10/05/19 13:42 O2 Sat by Pulse Oximetry (%) 94 L 10/05/19 09:00 Constitutional: Yes: Well Nourished, Calm Eyes: Yes: WNL HENT: Yes: WNL Neck: Yes: WNL Cardiovascular: Yes: Regular Rate and Rhythm, S1, S2 Respiratory: Yes: Diminished Gastrointestinal: Yes: Normal Bowel Sounds, Soft Extremities: Yes: WNL Edema: No Labs: CBC, BMP 10/05/19 07:10 10/05/19 07:10 INR, PTT INR 1.60 (0.83-1.09) H 10/03/19 13:50 Problem List - Problems (1) NITESH (acute kidney injury) Code(s): N17.9 - ACUTE KIDNEY FAILURE, UNSPECIFIED (2) Diabetes Code(s): E11.9 - TYPE 2 DIABETES MELLITUS WITHOUT COMPLICATIONS (3) Leukocytosis Code(s): D72.829 - ELEVATED WHITE BLOOD CELL COUNT, UNSPECIFIED Qualifiers: Leukocytosis type: unspecified Qualified Code(s): D72.829 - Elevated white blood cell count, unspecified Assessment/Plan Problem List - Problems (1) Pneumonia Code(s): J18.9 - PNEUMONIA, UNSPECIFIED ORGANISM Qualifiers: Pneumonia type: due to unspecified organism Laterality: left Lung location: lower lobe of lung Qualified Code(s): J18.9 - Pneumonia, unspecified organism Assessment/Plan Pneumonia Sepsis Lactic Acidosis improved Acute Kidney Injury improved HTN DM Hyperlipidemia Lung Nodules - IV antibiotics - monitor urine output, creatinine - pain control - O2 as needed - will need outpt f/u of chest imaging in 6-8 weeks to ensure resolution of infiltrates - DVT prophylaxis DR SHAFFER
[2019-10-05] MEDS: ACETAMINOPHEN 325 MG TABLET (FP) PO PRN (22:25)
[2019-10-05] MEDS: ATORVASTATIN CA 20 MG TABLET (FP) PO SCH (22:25)
[2019-10-06] MEDS: INSULIN SLIDING SCALE (NOVOLOG) 1 VIAL SQ SCH ×4 (06:03→21:35)
--- NOTE | 2019-10-06 08:07 | PN ---
Progress Note, Physician Chief Complaint: C/o sharp pain to left side on inspiration , no substernal. Not able to take deeps breaths. History of Present Illness: Patient is a 73 year old female with a significant past medical history of hypertension, left lung mass s/p biopsy 10 years ago, diabetes, remote history of pericarditis. She presents to the ED today with complaints of substernal and left anterlateral chest pain since last night. Patient states her chest pain increases when laying flat, and with deep inspiration. She denies trauma. Reports shaking chills last evening, tried OTC medications without relief (ASA , Tylenol). She reports dyspnea with physical exertion and discomfort when taking in a deep breath. Chest xray on admission shows large left pleural effusion, a chest CT is ordered to further evaluate. - Current Medication List Current Medications: Active Medications Acetaminophen (Tylenol -) 650 mg PO Q6H PRN PRN Reason: PAIN LEVEL 1-5 Last Admin: 10/05/19 22:25 Dose: 650 mg Albuterol/Ipratropium (Duoneb -) 1 amp NEB Q6H PRN PRN Reason: SHORTNESS OF BREATH Last Admin: 10/05/19 19:14 Dose: 1 amp Aspirin (Ecotrin -) 81 mg PO DAILY [facility] Last Admin: 10/05/19 09:36 Dose: 81 mg Atorvastatin Calcium (Lipitor -) 20 mg PO HS [facility] Last Admin: 10/05/19 22:25 Dose: 20 mg Cholecalciferol (Vitamin D3 -) 2,000 unit PO DAILY [facility] Last Admin: 10/05/19 09:37 Dose: 2,000 unit Famotidine (Pepcid -) 20 mg PO BID [facility] Last Admin: 10/05/19 22:25 Dose: 20 mg Furosemide (Lasix -) 40 mg PO MoWeFr [facility] Last Admin: 10/05/19 09:45 Dose: 40 mg Heparin Sodium (Porcine) (Heparin -) 5,000 unit SQ BID [facility] Last Admin: 10/05/19 22:25 Dose: 5,000 unit Azithromycin (Zithromax 500mg Ivpb (Pre-Docked)) 500 mg in 250 mls @ 250 mls/ hr IVPB DAILY [facility] Last Admin: 10/05/19 09:53 Dose: 250 mls/hr Ceftriaxone Sodium 1 gm/ (Dextrose) 50 mls @ 200 mls/hr IVPB DAILY [facility]; Protocol Last Admin: 10/05/19 09:39 Dose: 200 mls/hr Insulin Aspart (Novolog Vial Sliding Scale -) 1 vial SQ ACHS [facility]; Protocol Last Admin: 10/06/19 06:03 Dose: Not Given Non-Formulary Medication (Topiramate [Qudexy Xr]) 50 mg PO BID [facility] Tramadol HCl (Ultram -) 50 mg PO Q8H PRN PRN Reason: PAIN LEVEL 6-10 Last Admin: 10/05/19 17:22 Dose: 50 mg - Objective Vital Signs: Vital Signs Temperature 97.9 F 10/06/19 02:43 Pulse Rate 62 10/06/19 02:43 Respiratory Rate 19 10/06/19 02:43 Blood Pressure 119/61 10/06/19 02:43 O2 Sat by Pulse Oximetry (%) 94 L 10/05/19 21:00 Additional Findings/Remarks: Constitutional: Yes: Well Nourished, No Distress, Calm Eyes: Yes: WNL, Conjunctiva Clear HENT: Yes: WNL, Atraumatic, Normocephalic Neck: Yes: WNL, Supple, Trachea Midline Cardiovascular: Yes: WNL, Regular Rate and Rhythm Respiratory: Yes: Regular, CTA Bilaterally, Diminished (at bases) Gastrointestinal: Yes: WNL, Normal Bowel Sounds ...Rectal Exam: Yes: Deferred Genitourinary: Yes: WNL Breast(s): Yes: WNL Musculoskeletal: Yes: WNL Extremities: Yes: WNL Edema: Yes Edema: LLE: Trace, RLE: Trace Peripheral Pulses WNL: Yes Peripheral Pulses: Left Radial: 2+, Right Radial: 2+, Left Doralis Pedis: 2+, Right Dorsalis Pedis: 2+, Left Femoral: 2+, Right Femoral: 2+ Neurological: Yes: WNL, Alert, Oriented ...Motor Strength: WNL Psychiatric: Yes: WNL Labs: CBC, BMP 10/05/19 07:10 10/05/19 07:10 INR, PTT INR 1.60 (0.83-1.09) H 10/03/19 13:50 - ....Imaging Chest X-ray: Image Reviewed (Left inflitrate unchanged with atelectatic changes) Problem List - Problems (1) Pleural effusion Assessment/Plan: small pleural effusion on CT recommended CT f/u in 3 months c/w home lasix dose 40mg M/W/Fr Code(s): J90 - PLEURAL EFFUSION, NOT ELSEWHERE CLASSIFIED (2) NITESH (acute kidney injury) Assessment/Plan: baseline cr 1.0-1.2, now 1.1 careful monitoring of Cr on diuretic therapy-lasic 40mg TIW Code(s): N17.9 - ACUTE KIDNEY FAILURE, UNSPECIFIED (3) Diabetes Assessment/Plan: HgbA1C 5.8 BGM AC/HS with novolog sliding scale diabetic diet Code(s): E11.9 - TYPE 2 DIABETES MELLITUS WITHOUT COMPLICATIONS (4) Leukocytosis Assessment/Plan: WBC 18.8 on admission now 7.[address] with pna c/w ceftriaxone and azithromycin appreciate ID consult leginella Ag negative Code(s): D72.829 - ELEVATED WHITE BLOOD CELL COUNT, UNSPECIFIED Qualifiers: Leukocytosis type: unspecified Qualified Code(s): D72.829 - Elevated white blood cell count, unspecified (5) Pneumonia Assessment/Plan: c/w abx inhaled bronchdilators supplemental O2 prn chest CP, encourage deep breathing and ambulation Code(s): J18.9 - PNEUMONIA, UNSPECIFIED ORGANISM Qualifiers: Pneumonia type: due to unspecified organism Laterality: left Lung location: lower lobe of lung Qualified Code(s): J18.9 - Pneumonia, unspecified organism (6) Prophylactic measure Assessment/Plan: FEN tolerating po monitor electrolytes/mag diabetic diet DVT heparin bid Dispo maintain as inpatient discharge planning full code Code(s): Z29.9 - ENCOUNTER FOR PROPHYLACTIC MEASURES, UNSPECIFIED (7) Hypertension Assessment/Plan: off BB, off diovan normotensive continue to monitor Code(s): I10 - ESSENTIAL (PRIMARY) HYPERTENSION (8) Pleural pain Assessment/Plan: left sided pain on inspiration CXR repeated, no ptx, infiltrate and atelectasis persists one time dose of dilaudid 0.5 IVP given with good relief roxicodone 5mg q6h for severe pain to aid in taking deep breaths tylenol/motrin for mild-mod pain Code(s): R07.81 - PLEURODYNIA Visit type - Emergency Visit Emergency Visit: Yes ED Registration Date: 10/03/19 Care time: The patient presented to the Emergency Department on the above date and was hospitalized for further evaluation of their emergent condition. - New Patient This patient is new to me today: No - Critical Care Critical Care patient: No - Discharge Referral Referred to [facility] No
[2019-10-06 08:34] LABS: BASO % 0.8 % (0-2.0); HEMATOCRIT 31.1 % (32.4-45.2); HEMOGLOBIN 10.3 GM/dL (10.7-15.3); LYMPH % 17.3 % (8-40); MCH 30.2 pg (25.7-33.7); MCHC 33.1 g/dl (32.0-36.0); MEAN CELL VOLUME 91.2 fl (80-96); MEAN PLT VOLUME 8.3 fl (7.5-11.1); MONO % 8.2 % (3.8-10.2); NEUT % 71.7 % (42.8-82.8); PLATELET COUNT 264 K/MM3 (134-434); RBC 3.41 M/mm3 (3.60-5.2); WHITE BLOOD COUNT 7.1 K/mm3 (4.0-10.0)
[2019-10-06] MEDS ORDERED: DEXTROSE 5%-WATER - 50 ML IVPB ONE (08:41)
[2019-10-06] MEDS ORDERED: cefTRIAXone SODIUM 1 GM VIAL ONE (08:41)
[2019-10-06] MEDS: HEPARIN NA (PORCINE) 5,000 UNITS/ML 1ML VIAL SQ SCH ×3 (08:49→21:36)
[2019-10-06] MEDS: CHOLECALCIFEROL (VIT D3) 1,000 UNIT (25 MCG) TABLET PO SCH ×2 (08:50→10:06)
[2019-10-06] MEDS: traMADol HCL 50 MG TABLET PO PRN (08:50)
[2019-10-06] MEDS: ACETAMINOPHEN 325 MG TABLET (FP) PO PRN (08:50)
[2019-10-06 09:14] LABS: ALBUMIN 2.5 g/dl (3.4-5.0); BILIRUBIN,TOTAL 0.4 mg/dL (0.2-1); CALCIUM 9.2 mg/dL (8.5-10.1); CREATININE 1.1 mg/dL (0.55-1.3); MAGNESIUM 1.9 mg/dL (1.8-2.4); POTASSIUM 3.9 mmol/L (3.5-5.1)
[2019-10-06] MEDS: AZITHROMYCIN IVPB 500 MG/250 ML BAG IVPB SCH (09:40)
[2019-10-06] MEDS: CEFTRIAXONE 1 GM in DEXTROSE 5%-WATER - 50 ML IVPB SCH (09:41)
[2019-10-06] MEDS: ASPIRIN COATED 81 MG TABLET.EC PO SCH (10:07)
[2019-10-06] MEDS: FAMOTIDINE 20 MG TABLET PO SCH ×2 (10:07→21:34)
--- NOTE | 2019-10-06 11:23 | PN ---
Progress Note (short form) - Note Progress Note: PULMONARY Still with left sided pleurisy. No fevers or cough. Vital Signs Period Temp Pulse Resp BP Sys/Lozano Pulse Ox Last 24 Hr 97.9 F-98.8 F 62-80 19-20 115-119/52-70 94-94 Gen: NAD in chair Heart: RRR Lung: decreased breath sounds at the bases Abd: soft, nontender Ext: no edema CBC, BMP 10/06/19 06:58 10/06/19 06:58 Active Medications Acetaminophen (Tylenol -) 650 mg PO Q6H PRN PRN Reason: PAIN LEVEL 1-5 Last Admin: 10/06/19 08:50 Dose: 650 mg Albuterol/Ipratropium (Duoneb -) 1 amp NEB Q6H PRN PRN Reason: SHORTNESS OF BREATH Last Admin: 10/05/19 19:14 Dose: 1 amp Aspirin (Ecotrin -) 81 mg PO DAILY [facility] Last Admin: 10/06/19 10:07 Dose: 81 mg Atorvastatin Calcium (Lipitor -) 20 mg PO HS [facility] Last Admin: 10/05/19 22:25 Dose: 20 mg Cholecalciferol (Vitamin D3 -) 2,000 unit PO DAILY [facility] Last Admin: 10/06/19 10:06 Dose: Not Given Famotidine (Pepcid -) 20 mg PO BID [facility] Last Admin: 10/06/19 10:07 Dose: 20 mg Furosemide (Lasix -) 40 mg PO MoWeFr [facility] Last Admin: 10/05/19 09:45 Dose: 40 mg Heparin Sodium (Porcine) (Heparin -) 5,000 unit SQ BID [facility] Last Admin: 10/06/19 10:06 Dose: Not Given Azithromycin (Zithromax 500mg Ivpb (Pre-Docked)) 500 mg in 250 mls @ 250 mls/ hr IVPB DAILY [facility] Last Admin: 10/06/19 09:40 Dose: 250 mls/hr Ceftriaxone Sodium 1 gm/ (Dextrose) 50 mls @ 200 mls/hr IVPB DAILY [facility]; Protocol Last Admin: 10/06/19 09:41 Dose: 200 mls/hr Insulin Aspart (Novolog Vial Sliding Scale -) 1 vial SQ ACHS [facility]; Protocol Last Admin: 10/06/19 10:58 Dose: Not Given Non-Formulary Medication (Topiramate [Qudexy Xr]) 50 mg PO BID [facility] Tramadol HCl (Ultram -) 50 mg PO Q8H PRN PRN Reason: PAIN LEVEL 6-10 Last Admin: 10/06/19 08:50 Dose: 50 mg A/P Pneumonia Sepsis Lactic Acidosis Acute Kidney Injury HTN DM Hyperlipidemia Lung Nodules - continue antibiotics - f/u cultures - monitor urine output, creatinine - pain control - O2 as needed - will need outpt f/u of chest imaging in 6-8 weeks to ensure resolution of infiltrates - DVT prophylaxis Problem List - Problems (1) Pneumonia Code(s): J18.9 - PNEUMONIA, UNSPECIFIED ORGANISM Qualifiers: Pneumonia type: due to unspecified organism Laterality: left Lung location: lower lobe of lung Qualified Code(s): J18.9 - Pneumonia, unspecified organism
[2019-10-06] MEDS: IBUPROFEN 400 MG TABLET (FP) PO PRN ×2 (14:11→21:32)
[2019-10-06] MEDS ORDERED: traMADol HCL 50 MG TABLET PO PRN (14:17)
[2019-10-06] MEDS ORDERED: HYDROmorphone HCl 2 MG/ML VIAL IVPUSH ONE (14:44)
--- NOTE | 2019-10-06 15:36 | PN ---
Progress Note, Physician History of Present Illness: left sided pain still no new issues - Current Medication List Current Medications: Active Medications Acetaminophen (Tylenol -) 650 mg PO Q6H PRN PRN Reason: PAIN LEVEL 1-5 Last Admin: 10/06/19 08:50 Dose: 650 mg Albuterol/Ipratropium (Duoneb -) 1 amp NEB Q6H PRN PRN Reason: SHORTNESS OF BREATH Last Admin: 10/05/19 19:14 Dose: 1 amp Aspirin (Ecotrin -) 81 mg PO DAILY [facility] Last Admin: 10/06/19 10:07 Dose: 81 mg Atorvastatin Calcium (Lipitor -) 20 mg PO HS [facility] Last Admin: 10/05/19 22:25 Dose: 20 mg Cholecalciferol (Vitamin D3 -) 2,000 unit PO DAILY [facility] Last Admin: 10/06/19 10:06 Dose: Not Given Famotidine (Pepcid -) 20 mg PO BID [facility] Last Admin: 10/06/19 10:07 Dose: 20 mg Furosemide (Lasix -) 40 mg PO MoWeFr [facility] Last Admin: 10/05/19 09:45 Dose: 40 mg Heparin Sodium (Porcine) (Heparin -) 5,000 unit SQ BID [facility] Last Admin: 10/06/19 10:06 Dose: Not Given Azithromycin (Zithromax 500mg Ivpb (Pre-Docked)) 500 mg in 250 mls @ 250 mls/ hr IVPB DAILY [facility] Last Admin: 10/06/19 09:40 Dose: 250 mls/hr Ceftriaxone Sodium 1 gm/ (Dextrose) 50 mls @ 200 mls/hr IVPB DAILY [facility]; Protocol Last Admin: 10/06/19 09:41 Dose: 200 mls/hr Ibuprofen (Motrin -) 400 mg PO Q6H PRN PRN Reason: FEVER Last Admin: 10/06/19 14:11 Dose: 400 mg Insulin Aspart (Novolog Vial Sliding Scale -) 1 vial SQ ACHS [facility]; Protocol Last Admin: 10/06/19 10:58 Dose: Not Given Lidocaine (Lidoderm Patch -) 1 patch TP DAILY [facility] Miscellaneous (Lidoderm Patch Removal) 1 each MC DAILY@2200 [facility] Non-Formulary Medication (Topiramate [Qudexy Xr]) 50 mg PO BID [facility] Oxycodone HCl (Roxicodone -) 5 mg PO Q6H PRN PRN Reason: PAIN LEVEL 7 - 10 Tramadol HCl (Ultram -) 50 mg PO Q6H PRN PRN Reason: PAIN LEVEL 6-10 - Objective Vital Signs: Vital Signs Temperature 97.3 F L 10/06/19 13:35 Pulse Rate 77 10/06/19 13:35 Respiratory Rate 18 10/06/19 13:35 Blood Pressure 158/68 10/06/19 14:27 O2 Sat by Pulse Oximetry (%) 94 L 10/06/19 09:00 Constitutional: Yes: No Distress, Calm Cardiovascular: Yes: S1, S2 Respiratory: Yes: Regular, CTA Bilaterally Gastrointestinal: Yes: Normal Bowel Sounds, Soft Musculoskeletal: Yes: WNL Extremities: Yes: WNL Neurological: Yes: Alert, Oriented Psychiatric: Yes: Alert, Oriented Labs: CBC, BMP 10/06/19 06:58 10/06/19 06:58 INR, PTT INR 1.60 (0.83-1.09) H 10/03/19 13:50 Assessment/Plan Problem List - Problems (1) NITESH (acute kidney injury) Code(s): N17.9 - ACUTE KIDNEY FAILURE, UNSPECIFIED (2) Leukocytosis Code(s): D72.829 - ELEVATED WHITE BLOOD CELL COUNT, UNSPECIFIED Qualifiers: Leukocytosis type: unspecified Qualified Code(s): D72.829 - Elevated white blood cell count, unspecified (3) Pneumonia Code(s): J18.9 - PNEUMONIA, UNSPECIFIED ORGANISM Qualifiers: Pneumonia type: due to unspecified organism Laterality: left Lung location: lower lobe of lung Qualified Code(s): J18.9 - Pneumonia, unspecified organism (4) Hypertension Code(s): I10 - ESSENTIAL (PRIMARY) HYPERTENSION Assessment/Plan 73 y.o. female with PMH of Pericarditis, s/p lung biopsy and thoracotomy, thymoma s/p resection, HTN, GERD ,(denies DM but started on Metformin for 60 lb weight gain), and chronic LBP presented to the ER with c/o chest pain. PNA Sepsis Leukocytosis Lactic Acidosis Fever NITESH Hx of Pericarditis Hx of Thymoma HTN GERD Hx of Chronic LBP continue current mgmt consider antiinflammatory monitor closely wbc normalized
[2019-10-06] MEDS: LIDOCAINE 5% TOPICAL PATCH TP SCH (16:32)
[2019-10-06] MEDS: oxyCODONE HCL 5 MG TABLET PO PRN ×2 (16:41→22:26)
--- NOTE | 2019-10-06 16:45 | PN ---
Progress Note (short form) - Note Progress Note: s: stable cp improving with meds. no palps, dyspnea, dizziness. complains of edema. Current Medications Acetaminophen (Tylenol -) 650 mg PO Q6H PRN PRN Reason: PAIN LEVEL 1-5 Last Admin: 10/06/19 08:50 Dose: 650 mg Albuterol/Ipratropium (Duoneb -) 1 amp NEB Q6H PRN PRN Reason: SHORTNESS OF BREATH Last Admin: 10/05/19 19:14 Dose: 1 amp Aspirin (Ecotrin -) 81 mg PO DAILY [facility] Last Admin: 10/06/19 10:07 Dose: 81 mg Atorvastatin Calcium (Lipitor -) 20 mg PO HS [facility] Last Admin: 10/05/19 22:25 Dose: 20 mg Cholecalciferol (Vitamin D3 -) 2,000 unit PO DAILY [facility] Last Admin: 10/06/19 10:06 Dose: Not Given Famotidine (Pepcid -) 20 mg PO BID [facility] Last Admin: 10/06/19 10:07 Dose: 20 mg Furosemide (Lasix -) 40 mg PO MoWeFr [facility] Last Admin: 10/05/19 09:45 Dose: 40 mg Heparin Sodium (Porcine) (Heparin -) 5,000 unit SQ BID [facility] Last Admin: 10/06/19 10:06 Dose: Not Given Azithromycin (Zithromax 500mg Ivpb (Pre-Docked)) 500 mg in 250 mls @ 250 mls/ hr IVPB DAILY [facility] Last Admin: 10/06/19 09:40 Dose: 250 mls/hr Ceftriaxone Sodium 1 gm/ (Dextrose) 50 mls @ 200 mls/hr IVPB DAILY [facility]; Protocol Last Admin: 10/06/19 09:41 Dose: 200 mls/hr Ibuprofen (Motrin -) 400 mg PO Q6H PRN PRN Reason: FEVER Last Admin: 10/06/19 14:11 Dose: 400 mg Insulin Aspart (Novolog Vial Sliding Scale -) 1 vial SQ ACHS [facility]; Protocol Last Admin: 10/06/19 15:54 Dose: Not Given Lidocaine (Lidoderm Patch -) 1 patch TP DAILY [facility] Last Admin: 10/06/19 16:32 Dose: 1 patch Miscellaneous (Lidoderm Patch Removal) 1 each MC DAILY@2200 [facility] Non-Formulary Medication (Topiramate [Qudexy Xr]) 50 mg PO BID [facility] Oxycodone HCl (Roxicodone -) 5 mg PO Q6H PRN PRN Reason: PAIN LEVEL 7 - 10 Last Admin: 10/06/19 16:41 Dose: 5 mg Tramadol HCl (Ultram -) 50 mg PO Q6H PRN PRN Reason: PAIN LEVEL 6-10 Vital Signs Period Temp Pulse Resp BP Sys/Lozano Pulse Ox Last 24 Hr 97.3 F-98.8 F 62-82 17-20 115-158/60-70 94-94 Constitutional: Yes: Well Nourished, No Distress Eyes: No: Sclera Icterus HENT: No: Nasal Congestion Neck: No: Decreased ROM Respiratory: Yes: CTA Bilaterally, Diminished (L upper field). No: Accessory Muscle Use, Rales, Wheezes Gastrointestinal: Yes: Normal Bowel Sounds. No: Distention, Hepatomegaly, Palpable Mass, Tenderness Cardiovascular: Yes: Regular Rate and Rhythm. No: Rub JVD: No Carotid Bruit: No PMI: Non-Displaced Heart Sounds: Yes: S1, S2. No: Gallop Murmur: No: Systolic Murmur, Diastolic Murmur Musculoskeletal: Yes: Other (No kyphosis) Extremities: No: Cool, Cyanosis Edema: No Peripheral Pulses: 2+ Left Carotid, 2+ Right Carotid, 2+ Left Doralis Pedis, 2+ Right Dorsalis Pedis Integumentary: No: Jaundice Neurological: Yes: Alert, Oriented (x3) Psychiatric: No: Agitated Assessment/Plan ECG: NSR, NSST-Ts anterior leads--no signif change vs prior in office on 07/07 CT chest: HENRY and LLL pneumonia, nodules x 2 Echo 10/06: nl LV/EF. nl RV. nl valve fxn. no peric effusion edema - likely after receiving IVF, now dc'ed - improving with lasix, continue PNA with pleuritic CP likely secondary to infectious pleurisy: -plan per pulm, ID -not concerning for pericarditis, echo no effusion -(trop neg, ECG no change vs baseline) NITESH: -? sepsis related -improved with IVF -otherwise, plan per primary Supraventricular tachycardia -NO RECENT RECURRENCES. -CONT HOME B-ROLO Essential hypertension -BP CONTROLLED -CONT HOME MEDS Emphysema -MILD CENTRILOBULAR COPD CHANGES ON CT SCAN; -PER PULM Pure hypercholesterolemia -CONT HOME [facility] h/o pericarditis -EQUIVOCAL HX, WITH VERY BRIEF (1-2 DAYS) SX'S WHICH WERE ? SELF-LIMITED VS RESPONDED TO LOW DOSE OF PRN NSAIDS; MILDLY ELEVATED ESR/CRP AT THAT TIME-- NORMAL ON F/U LABS. -CARDIAC MRI 2012 WITH PERICARDIAL ENHANEMENT, WAS ASYMPTOMATIC THEN AND NO SX' S SINCE--ENHANCEMENT DECREASED (NOT RESOLVED) ON 6 MO F/U CMR STUDY. -NO FRICTION RUB, NO ECG CHANGES, NO PERIC EFFUSION--NO SUSPECTED ACTIVE PROCESS PRESENTLY, ABOVE
[2019-10-06] MEDS: ALBUTEROL SO4 2.5/IPRATROPIUM 0.5 INH SOL 3 ML VIAL.NEB. NEB PRN (19:39)
[2019-10-06] MEDS: ATORVASTATIN CA 20 MG TABLET (FP) PO SCH (21:34)
[2019-10-06] MEDS: LIDOCAINE PATCH REMOVAL MC SCH (21:36)
[2019-10-06] MEDS ORDERED: MAGNESIUM HYDROX 2400MG/30ML ORAL SUSPENSION 30 ML CUP PO ONE (23:31)
[2019-10-07] MEDS: INSULIN SLIDING SCALE (NOVOLOG) 1 VIAL SQ SCH ×4 (06:06→22:39)
[2019-10-07] MEDS: oxyCODONE HCL 5 MG TABLET PO PRN ×3 (06:51→19:48)
[2019-10-07] MEDS: IBUPROFEN 400 MG TABLET (FP) PO PRN ×3 (06:51→22:50)
[2019-10-07 08:14] LABS: BASO % 0.8 % (0-2.0); EOS % 3.1 % (0-4.5); HEMATOCRIT 29.7 % (32.4-45.2); HEMOGLOBIN 9.8 GM/dL (10.7-15.3); LYMPH % 21.5 % (8-40); MCHC 32.9 g/dl (32.0-36.0); MEAN PLT VOLUME 7.9 fl (7.5-11.1); MONO % 12.5 % (3.8-10.2); NEUT % 62.1 % (42.8-82.8); PLATELET COUNT 265 K/MM3 (134-434); RBC 3.27 M/mm3 (3.60-5.2); RDW 13.3 % (11.6-15.6); WHITE BLOOD COUNT 6.4 K/mm3 (4.0-10.0)
--- NOTE | 2019-10-07 08:18 | PN ---
Progress Note, Physician Chief Complaint: Pleurtic pain much less today. Able to take deeper breaths and use IS History of Present Illness: Patient is a 73 year old female with a significant past medical history of hypertension, left lung mass s/p biopsy 10 years ago, diabetes, remote history of pericarditis. She presents to the ED today with complaints of substernal and left anterlateral chest pain since last night. Patient states her chest pain increases when laying flat, and with deep inspiration. She denies trauma. Reports shaking chills last evening, tried OTC medications without relief (ASA , Tylenol). She reports dyspnea with physical exertion and discomfort when taking in a deep breath. Chest xray on admission shows large left pleural effusion, a chest CT is ordered to further evaluate. - Current Medication List Current Medications: Active Medications Acetaminophen (Tylenol -) 650 mg PO Q6H PRN PRN Reason: PAIN LEVEL 1-5 Last Admin: 10/06/19 08:50 Dose: 650 mg Albuterol/Ipratropium (Duoneb -) 1 amp NEB Q6H PRN PRN Reason: SHORTNESS OF BREATH Last Admin: 10/06/19 19:39 Dose: 1 amp Aspirin (Ecotrin -) 81 mg PO DAILY [facility] Last Admin: 10/06/19 10:07 Dose: 81 mg Atorvastatin Calcium (Lipitor -) 20 mg PO HS [facility] Last Admin: 10/06/19 21:34 Dose: 20 mg Cholecalciferol (Vitamin D3 -) 2,000 unit PO DAILY [facility] Last Admin: 10/06/19 10:06 Dose: Not Given Famotidine (Pepcid -) 20 mg PO BID [facility] Last Admin: 10/06/19 21:34 Dose: 20 mg Furosemide (Lasix -) 40 mg PO MoWeFr [facility] Last Admin: 10/05/19 09:45 Dose: 40 mg Heparin Sodium (Porcine) (Heparin -) 5,000 unit SQ BID [facility] Last Admin: 10/06/19 21:36 Dose: 5,000 unit Azithromycin (Zithromax 500mg Ivpb (Pre-Docked)) 500 mg in 250 mls @ 250 mls/ hr IVPB DAILY [facility] Last Admin: 10/06/19 09:40 Dose: 250 mls/hr Ceftriaxone Sodium 1 gm/ (Dextrose) 50 mls @ 200 mls/hr IVPB DAILY [facility]; Protocol Last Admin: 10/06/19 09:41 Dose: 200 mls/hr Ibuprofen (Motrin -) 400 mg PO Q6H PRN PRN Reason: FEVER Last Admin: 10/07/19 06:51 Dose: 400 mg Insulin Aspart (Novolog Vial Sliding Scale -) 1 vial SQ ACHS [facility]; Protocol Last Admin: 10/07/19 06:06 Dose: Not Given Lidocaine (Lidoderm Patch -) 1 patch TP DAILY [facility] Last Admin: 10/06/19 16:32 Dose: 1 patch Miscellaneous (Lidoderm Patch Removal) 1 each MC DAILY@2200 [facility] Last Admin: 10/06/19 21:36 Dose: 1 each Non-Formulary Medication (Topiramate [Qudexy Xr]) 50 mg PO BID [facility] Oxycodone HCl (Roxicodone -) 5 mg PO Q6H PRN PRN Reason: PAIN LEVEL 7 - 10 Last Admin: 10/07/19 06:51 Dose: 5 mg Polyethylene Glycol (Miralax (For Daily Use) -) 17 gm PO DAILY [facility] Tramadol HCl (Ultram -) 50 mg PO Q6H PRN PRN Reason: PAIN LEVEL 6-10 - Objective Vital Signs: Vital Signs Temperature 98.3 F 10/07/19 06:40 Pulse Rate 73 10/07/19 06:40 Respiratory Rate 20 10/07/19 06:40 Blood Pressure 140/79 10/07/19 06:40 O2 Sat by Pulse Oximetry (%) 94 L 10/06/19 21:00 Additional Findings/Remarks: Constitutional: Yes: Well Nourished, No Distress, Calm Eyes: Yes: WNL, Conjunctiva Clear HENT: Yes: WNL, Atraumatic, Normocephalic Neck: Yes: WNL, Supple, Trachea Midline Cardiovascular: Yes: WNL, Regular Rate and Rhythm Respiratory: Yes: Regular, CTA Bilaterally, Diminished (at bases) Gastrointestinal: Yes: WNL, Normal Bowel Sounds ...Rectal Exam: Yes: Deferred Genitourinary: Yes: WNL Breast(s): Yes: WNL Musculoskeletal: Yes: WNL Extremities: Yes: WNL Edema: Yes Edema: LLE: Trace, RLE: Trace Peripheral Pulses WNL: Yes Peripheral Pulses: Left Radial: 2+, Right Radial: 2+, Left Doralis Pedis: 2+, Right Dorsalis Pedis: 2+, Left Femoral: 2+, Right Femoral: 2+ Neurological: Yes: WNL, Alert, Oriented ...Motor Strength: WNL Psychiatric: Yes: WNL Labs: INR, PTT INR 1.60 (0.83-1.09) H 10/03/19 13:50 - ....Imaging Chest X-ray: Image Reviewed (Left infiltrates persists with underlying atelectasis) Problem List - Problems (1) Pleural effusion Assessment/Plan: small pleural effusion on CT recommended CT f/u in 3 months c/w home lasix dose 40mg M/W/Fr Code(s): J90 - PLEURAL EFFUSION, NOT ELSEWHERE CLASSIFIED (2) NITESH (acute kidney injury) Assessment/Plan: baseline cr 1.0-1.2, now 1.1 careful monitoring of Cr on diuretic therapy-lasic 40mg TIW Code(s): N17.9 - ACUTE KIDNEY FAILURE, UNSPECIFIED (3) Diabetes Assessment/Plan: HgbA1C 5.8 BGM AC/HS with novolog sliding scale diabetic diet Code(s): E11.9 - TYPE 2 DIABETES MELLITUS WITHOUT COMPLICATIONS (4) Leukocytosis Assessment/Plan: WBC 18.8 on admission now 6.[address] with pna c/w ceftriaxone and azithromycin for one more day appreciate ID consult leginella Ag negative Code(s): D72.829 - ELEVATED WHITE BLOOD CELL COUNT, UNSPECIFIED Qualifiers: Leukocytosis type: unspecified Qualified Code(s): D72.829 - Elevated white blood cell count, unspecified (5) Pneumonia Assessment/Plan: c/w abx for 5 days total inhaled bronchdilators supplemental O2 prn chest CP, encourage deep breathing and ambulation Code(s): J18.9 - PNEUMONIA, UNSPECIFIED ORGANISM Qualifiers: Pneumonia type: due to unspecified organism Laterality: left Lung location: lower lobe of lung Qualified Code(s): J18.9 - Pneumonia, unspecified organism (6) Prophylactic measure Assessment/Plan: FEN tolerating po monitor electrolytes/mag diabetic diet DVT heparin bid Dispo maintain as inpatient discharge planning full code Code(s): Z29.9 - ENCOUNTER FOR PROPHYLACTIC MEASURES, UNSPECIFIED (7) Hypertension Assessment/Plan: off BB, off diovan normotensive continue to monitor Code(s): I10 - ESSENTIAL (PRIMARY) HYPERTENSION (8) Pleural pain Assessment/Plan: left sided pain on inspiration CXR unchanged roxicodone 5mg q6h for severe pain to aid in taking deep breaths tylenol/motrin for mild-mod pain Code(s): R07.81 - PLEURODYNIA (9) Atelectasis of left lung Assessment/Plan: c/w IS q 1 h hours to aid in lung re-expansion Code(s): J98.11 - ATELECTASIS Visit type - Emergency Visit Emergency Visit: Yes ED Registration Date: 10/03/19 Care time: The patient presented to the Emergency Department on the above date and was hospitalized for further evaluation of their emergent condition. - New Patient This patient is new to me today: No - Critical Care Critical Care patient: No - Discharge Referral Referred to [facility] Med [facility].C[facility] No
[2019-10-07 08:41] LABS: ALBUMIN 2.4 g/dl (3.4-5.0); BILIRUBIN,TOTAL 0.3 mg/dL (0.2-1); BLOOD UREA NITROGEN 17.2 mg/dL (7-18); CREATININE 1.1 mg/dL (0.55-1.3); POTASSIUM 3.9 mmol/L (3.5-5.1); TOT PROT 5.6 g/dl (6.4-8.2)
[2019-10-07] MEDS: ALBUTEROL SO4 2.5/IPRATROPIUM 0.5 INH SOL 3 ML VIAL.NEB. NEB PRN ×2 (09:20→14:45)
[2019-10-07] MEDS ORDERED: cefTRIAXone SODIUM 1 GM VIAL ONE (09:37)
[2019-10-07] MEDS ORDERED: DEXTROSE 5%-WATER - 50 ML IVPB ONE (09:37)
--- NOTE | 2019-10-07 09:45 | PN ---
Progress Note, Physician History of Present Illness: stable no new issues - Current Medication List Current Medications: Active Medications Acetaminophen (Tylenol -) 650 mg PO Q6H PRN PRN Reason: PAIN LEVEL 1-5 Last Admin: 10/06/19 08:50 Dose: 650 mg Albuterol/Ipratropium (Duoneb -) 1 amp NEB Q6H PRN PRN Reason: SHORTNESS OF BREATH Last Admin: 10/06/19 19:39 Dose: 1 amp Aspirin (Ecotrin -) 81 mg PO DAILY [facility] Last Admin: 10/06/19 10:07 Dose: 81 mg Atorvastatin Calcium (Lipitor -) 20 mg PO HS [facility] Last Admin: 10/06/19 21:34 Dose: 20 mg Cholecalciferol (Vitamin D3 -) 2,000 unit PO DAILY [facility] Last Admin: 10/06/19 10:06 Dose: Not Given Famotidine (Pepcid -) 20 mg PO BID [facility] Last Admin: 10/06/19 21:34 Dose: 20 mg Furosemide (Lasix -) 40 mg PO MoWeFr [facility] Last Admin: 10/05/19 09:45 Dose: 40 mg Heparin Sodium (Porcine) (Heparin -) 5,000 unit SQ BID [facility] Last Admin: 10/06/19 21:36 Dose: 5,000 unit Azithromycin (Zithromax 500mg Ivpb (Pre-Docked)) 500 mg in 250 mls @ 250 mls/ hr IVPB DAILY [facility] Last Admin: 10/06/19 09:40 Dose: 250 mls/hr Ceftriaxone Sodium 1 gm/ (Dextrose) 50 mls @ 200 mls/hr IVPB DAILY [facility]; Protocol Last Admin: 10/06/19 09:41 Dose: 200 mls/hr Ibuprofen (Motrin -) 400 mg PO Q6H PRN PRN Reason: FEVER Last Admin: 10/07/19 06:51 Dose: 400 mg Insulin Aspart (Novolog Vial Sliding Scale -) 1 vial SQ ACHS [facility]; Protocol Last Admin: 10/07/19 06:06 Dose: Not Given Lidocaine (Lidoderm Patch -) 1 patch TP DAILY [facility] Last Admin: 10/06/19 16:32 Dose: 1 patch Miscellaneous (Lidoderm Patch Removal) 1 each MC DAILY@2200 [facility] Last Admin: 10/06/19 21:36 Dose: 1 each Non-Formulary Medication (Topiramate [Qudexy Xr]) 50 mg PO BID [facility] Oxycodone HCl (Roxicodone -) 5 mg PO Q6H PRN PRN Reason: PAIN LEVEL 7 - 10 Last Admin: 10/07/19 06:51 Dose: 5 mg Polyethylene Glycol (Miralax (For Daily Use) -) 17 gm PO DAILY [facility] Tramadol HCl (Ultram -) 50 mg PO Q6H PRN PRN Reason: PAIN LEVEL 6-10 - Objective Vital Signs: Vital Signs Temperature 98.2 F 10/07/19 09:00 Pulse Rate 73 10/07/19 09:00 Respiratory Rate 20 10/07/19 09:00 Blood Pressure 134/64 10/07/19 09:00 O2 Sat by Pulse Oximetry (%) 94 L 10/06/19 21:00 Constitutional: Yes: No Distress, Calm Cardiovascular: Yes: S1, S2 Respiratory: Yes: Regular, CTA Bilaterally Gastrointestinal: Yes: Normal Bowel Sounds, Soft Musculoskeletal: Yes: WNL Extremities: Yes: WNL Labs: CBC, BMP 10/07/19 06:35 10/07/19 06:35 INR, PTT INR 1.60 (0.83-1.09) H 10/03/19 13:50 Assessment/Plan Problem List - Problems (1) NITESH (acute kidney injury) Code(s): N17.9 - ACUTE KIDNEY FAILURE, UNSPECIFIED (2) Leukocytosis Code(s): D72.829 - ELEVATED WHITE BLOOD CELL COUNT, UNSPECIFIED Qualifiers: Leukocytosis type: unspecified Qualified Code(s): D72.829 - Elevated white blood cell count, unspecified (3) Pneumonia Code(s): J18.9 - PNEUMONIA, UNSPECIFIED ORGANISM Qualifiers: Pneumonia type: due to unspecified organism Laterality: left Lung location: lower lobe of lung Qualified Code(s): J18.9 - Pneumonia, unspecified organism (4) Hypertension Code(s): I10 - ESSENTIAL (PRIMARY) HYPERTENSION Assessment/Plan 73 y.o. female with PMH of Pericarditis, s/p lung biopsy and thoracotomy, thymoma s/p resection, HTN, GERD ,(denies DM but started on Metformin for 60 lb weight gain), and chronic LBP presented to the ER with c/o chest pain. PNA Sepsis Leukocytosis Lactic Acidosis Fever NITESH Hx of Pericarditis Hx of Thymoma HTN GERD Hx of Chronic LBP continue current mgmt consider antiinflammatory monitor closely wbc normalized
[2019-10-07] MEDS: ACETAMINOPHEN 325 MG TABLET (FP) PO PRN ×2 (09:51→19:49)
[2019-10-07] MEDS: ASPIRIN COATED 81 MG TABLET.EC PO SCH (09:52)
[2019-10-07] MEDS: CHOLECALCIFEROL (VIT D3) 1,000 UNIT (25 MCG) TABLET PO SCH (09:52)
[2019-10-07] MEDS: HEPARIN NA (PORCINE) 5,000 UNITS/ML 1ML VIAL SQ SCH ×2 (09:53→22:38)
[2019-10-07] MEDS: LIDOCAINE 5% TOPICAL PATCH TP SCH (09:53)
[2019-10-07] MEDS: FAMOTIDINE 20 MG TABLET PO SCH ×2 (09:54→22:39)
[2019-10-07] MEDS: CEFTRIAXONE 1 GM in DEXTROSE 5%-WATER - 50 ML IVPB SCH (09:59)
[2019-10-07] MEDS: POLYETHYLENE GLYCOL 3350 119 GM BTL PO SCH (10:03)
[2019-10-07] MEDS: FUROSEMIDE 40 MG TABLET (FP) PO SCH (10:03)
[2019-10-07] MEDS: AZITHROMYCIN IVPB 500 MG/250 ML BAG IVPB SCH (10:09)
--- NOTE | 2019-10-07 14:50 | PN ---
Progress Note (short form) - Note Progress Note: s: cp improving with meds. no palps, dyspnea, dizziness. complains of edema. Current Medications Generic Name Dose Route Start Last Admin Trade Name Freq PRN Reason Stop Dose Admin Acetaminophen 650 mg 10/03/19 21:09 10/07/19 09:51 Tylenol - PO 650 mg Q6H PRN Administration PAIN LEVEL 1-5 Albuterol/Ipratropium 1 amp 10/05/19 10:12 10/07/19 09:20 Duoneb - NEB 1 amp Q6H PRN Administration SHORTNESS OF BREATH Aspirin 81 mg 10/04/19 10:00 10/07/19 09:52 Ecotrin - PO 81 mg DAILY [facility] Administration Atorvastatin Calcium 20 mg 10/03/19 22:00 10/06/19 21:34 Lipitor - PO 20 mg HS [facility] Administration Cholecalciferol 2,000 unit 10/04/19 10:00 10/07/19 09:52 Vitamin D3 - PO 2,000 unit DAILY [facility] Administration Famotidine 20 mg 10/03/19 22:00 10/07/19 09:54 Pepcid - PO 20 mg BID [facility] Administration Furosemide 40 mg 10/05/19 10:00 10/07/19 10:03 Lasix - PO 40 mg MoWeFr [facility] Administration Heparin Sodium (Porcine) 5,000 unit 10/03/19 22:00 10/07/19 09:53 Heparin - SQ 5,000 unit BID [facility] Administration Azithromycin 500 mg in 250 mls @ 250 mls/hr 10/04/19 10:00 10/07/19 10:09 Zithromax 500mg Ivpb (Pre-Docked) IVPB 250 mls/hr DAILY [facility] Administration Ceftriaxone Sodium 1 gm/ 50 mls @ 200 mls/hr 10/04/19 15:00 10/07/19 09:59 Dextrose IVPB 200 mls/hr DAILY [facility] Administration Protocol Ibuprofen 400 mg 10/06/19 11:23 10/07/19 12:28 Motrin - PO 400 mg Q6H PRN Administration FEVER Insulin Aspart 1 vial 10/03/19 22:00 10/07/19 11:20 Novolog Vial Sliding Scale - SQ Not Given ACHS [facility] Protocol Lidocaine 1 patch 10/06/19 15:00 10/07/19 09:53 Lidoderm Patch - TP 1 patch DAILY [facility] Administration Miscellaneous 1 each 10/06/19 22:00 10/06/19 21:36 Lidoderm Patch Removal MC 1 each DAILY@2200 [facility] Administration Oxycodone HCl 5 mg 10/06/19 14:51 10/07/19 13:27 Roxicodone - PO 5 mg Q6H PRN Administration PAIN LEVEL 7 - 10 Polyethylene Glycol 17 gm 10/07/19 10:00 10/07/19 10:03 Miralax (For Daily Use) - PO 17 grams DAILY [facility] Administration Tramadol HCl 50 mg 10/06/19 14:17 Ultram - PO Q6H PRN PAIN LEVEL 6-10 Vital Signs Period Temp Pulse Resp BP Sys/Lozano Pulse Ox Last 24 Hr 97.3 F-98.3 F 73-82 20-20 134-155/64-79 92-94 Constitutional: Yes: Well Nourished, No Distress Eyes: No: Sclera Icterus HENT: No: Nasal Congestion Neck: No: Decreased ROM Respiratory: Yes: CTA Bilaterally, Diminished (L upper field). No: Accessory Muscle Use, Rales, Wheezes Gastrointestinal: Yes: Normal Bowel Sounds. No: Distention, Hepatomegaly, Palpable Mass, Tenderness Cardiovascular: Yes: Regular Rate and Rhythm. No: Rub JVD: No Carotid Bruit: No PMI: Non-Displaced Heart Sounds: Yes: S1, S2. No: Gallop Murmur: No: Systolic Murmur, Diastolic Murmur Musculoskeletal: Yes: Other (No kyphosis) Extremities: No: Cool, Cyanosis Edema: No Peripheral Pulses: 2+ Left Carotid, 2+ Right Carotid, 2+ Left Doralis Pedis, 2+ Right Dorsalis Pedis Integumentary: No: Jaundice Neurological: Yes: Alert, Oriented (x3) Psychiatric: No: Agitated CBC, BMP 10/07/19 06:35 10/07/19 06:35 Assessment/Plan ECG: NSR, NSST-Ts anterior leads--no signif change vs prior in office on 07/07 CT chest: HENRY and LLL pneumonia, nodules x 2 Echo 10/06: nl LV/EF. nl RV. nl valve fxn. no peric effusion edema - minimal, likely after receiving IVF, now dc'ed - cont po lasix PNA with pleuritic CP likely secondary to infectious pleurisy: -plan per pulm, ID -not concerning for pericarditis, echo no effusion -(trop neg, ECG no change vs baseline) NITESH: -? sepsis related -improved with IVF -otherwise, plan per primary Supraventricular tachycardia -NO RECENT RECURRENCES. -CONT HOME B-ROLO Essential hypertension -BP CONTROLLED -CONT HOME MEDS Emphysema -MILD CENTRILOBULAR COPD CHANGES ON CT SCAN; -PER PULM Pure hypercholesterolemia -CONT HOME [facility] h/o pericarditis -EQUIVOCAL HX, WITH VERY BRIEF (1-2 DAYS) SX'S WHICH WERE ? SELF-LIMITED VS RESPONDED TO LOW DOSE OF PRN NSAIDS; MILDLY ELEVATED ESR/CRP AT THAT TIME-- NORMAL ON F/U LABS. -CARDIAC MRI 2012 WITH PERICARDIAL ENHANEMENT, WAS ASYMPTOMATIC THEN AND NO SX' S SINCE--ENHANCEMENT DECREASED (NOT RESOLVED) ON 6 MO F/U CMR STUDY. -NO FRICTION RUB, NO ECG CHANGES, NO PERIC EFFUSION--NO SUSPECTED ACTIVE PROCESS PRESENTLY, ABOVE
--- NOTE | 2019-10-07 15:48 | PN ---
Progress Note (short form) - Note Progress Note: PULMONARY Subjective improvement vss/afebrile Gen: NAD in chair Heart: RRR Lung: decreased breath sounds at the bases Abd: soft, nontender Ext: no edema labs/meds/notes/images reviewed A/P Pneumonia Sepsis Lactic Acidosis Acute Kidney Injury HTN DM Hyperlipidemia Lung Nodules - antibiotics - pain control - O2 as needed - will need outpt f/u of chest imaging in 6-8 weeks to ensure resolution of infiltrates - DVT prophylaxis Gurdeep BREAUX MD
[2019-10-07] MEDS: ATORVASTATIN CA 20 MG TABLET (FP) PO SCH (22:37)
[2019-10-07] MEDS: LIDOCAINE PATCH REMOVAL MC SCH (22:39)
[2019-10-08] MEDS: oxyCODONE HCL 5 MG TABLET PO PRN (06:38)
[2019-10-08] MEDS: ACETAMINOPHEN 325 MG TABLET (FP) PO PRN (06:38)
[2019-10-08] MEDS: INSULIN SLIDING SCALE (NOVOLOG) 1 VIAL SQ SCH ×2 (07:00→11:03)
[2019-10-08] MEDS ORDERED: cefTRIAXone SODIUM 1 GM VIAL ONE (09:05)
[2019-10-08] MEDS ORDERED: DEXTROSE 5%-WATER - 50 ML IVPB ONE (09:05)
[2019-10-08] MEDS: ASPIRIN COATED 81 MG TABLET.EC PO SCH (09:22)
[2019-10-08] MEDS: FAMOTIDINE 20 MG TABLET PO SCH (09:22)
[2019-10-08] MEDS: HEPARIN NA (PORCINE) 5,000 UNITS/ML 1ML VIAL SQ SCH (09:22)
[2019-10-08] MEDS: CHOLECALCIFEROL (VIT D3) 1,000 UNIT (25 MCG) TABLET PO SCH (09:22)
[2019-10-08] MEDS: POLYETHYLENE GLYCOL 3350 119 GM BTL PO SCH (09:23)
[2019-10-08] MEDS: LIDOCAINE 5% TOPICAL PATCH TP SCH (09:24)
[2019-10-08] MEDS: CEFTRIAXONE 1 GM in DEXTROSE 5%-WATER - 50 ML IVPB SCH (09:25)
[2019-10-08] MEDS: AZITHROMYCIN IVPB 500 MG/250 ML BAG IVPB SCH (09:27)
[2019-10-08] MEDS ORDERED: VALSARTAN 160 MG TABLET (UD) PO SCH (10:00)
[2019-10-08 10:18] VITALS: BP 132/57; PULSE 65; TEMP 98.4
--- NOTE | 2019-10-08 10:48 | PN ---
Progress Note, Physician History of Present Illness: stable still with pain - Current Medication List Current Medications: Active Medications Acetaminophen (Tylenol -) 650 mg PO Q6H PRN PRN Reason: PAIN LEVEL 1-5 Last Admin: 10/08/19 06:38 Dose: 650 mg Albuterol/Ipratropium (Duoneb -) 1 amp NEB Q6H PRN PRN Reason: SHORTNESS OF BREATH Last Admin: 10/07/19 14:45 Dose: 1 amp Aspirin (Ecotrin -) 81 mg PO DAILY [facility] Last Admin: 10/08/19 09:22 Dose: 81 mg Atorvastatin Calcium (Lipitor -) 20 mg PO HS [facility] Last Admin: 10/07/19 22:37 Dose: 20 mg Cholecalciferol (Vitamin D3 -) 2,000 unit PO DAILY [facility] Last Admin: 10/08/19 09:22 Dose: 2,000 unit Famotidine (Pepcid -) 20 mg PO BID [facility] Last Admin: 10/08/19 09:22 Dose: 20 mg Furosemide (Lasix -) 40 mg PO MoWeFr [facility] Last Admin: 10/07/19 10:03 Dose: 40 mg Heparin Sodium (Porcine) (Heparin -) 5,000 unit SQ BID [facility] Last Admin: 10/08/19 09:22 Dose: 5,000 unit Azithromycin (Zithromax 500mg Ivpb (Pre-Docked)) 500 mg in 250 mls @ 250 mls/ hr IVPB DAILY [facility] Stop: 10/08/19 23:59 Last Admin: 10/08/19 09:27 Dose: 250 mls/hr Ceftriaxone Sodium 1 gm/ (Dextrose) 50 mls @ 200 mls/hr IVPB DAILY [facility]; Protocol Stop: 10/08/19 23:59 Last Admin: 10/08/19 09:25 Dose: 200 mls/hr Ibuprofen (Motrin -) 400 mg PO Q6H PRN PRN Reason: FEVER Last Admin: 10/07/19 22:50 Dose: 400 mg Insulin Aspart (Novolog Vial Sliding Scale -) 1 vial SQ ACHS [facility]; Protocol Last Admin: 10/08/19 07:00 Dose: Not Given Lidocaine (Lidoderm Patch -) 1 patch TP DAILY [facility] Last Admin: 10/08/19 09:24 Dose: 1 patch Miscellaneous (Lidoderm Patch Removal) 1 each MC DAILY@2200 [facility] Last Admin: 10/07/19 22:39 Dose: 1 each Oxycodone HCl (Roxicodone -) 5 mg PO Q6H PRN PRN Reason: PAIN LEVEL 7 - 10 Last Admin: 10/08/19 06:38 Dose: 5 mg Polyethylene Glycol (Miralax (For Daily Use) -) 17 gm PO DAILY [facility] Last Admin: 10/08/19 09:23 Dose: 17 grams Tramadol HCl (Ultram -) 50 mg PO Q6H PRN PRN Reason: PAIN LEVEL 6-10 Valsartan (Diovan -) 320 mg PO DAILY [facility] Last Admin: 10/08/19 09:22 Dose: 320 mg - Objective Vital Signs: Vital Signs Temperature 98.4 F 10/08/19 10:00 Pulse Rate 65 10/08/19 10:00 Respiratory Rate 20 10/08/19 10:00 Blood Pressure 132/57 L 10/08/19 10:00 O2 Sat by Pulse Oximetry (%) 90 L 10/07/19 21:00 Constitutional: Yes: Calm, Mild Distress Cardiovascular: Yes: S1, S2 Respiratory: Yes: Regular, CTA Bilaterally Gastrointestinal: Yes: Normal Bowel Sounds, Soft Musculoskeletal: Yes: WNL Extremities: Yes: WNL Neurological: Yes: Alert, Oriented Psychiatric: Yes: Alert, Oriented Labs: CBC, BMP 10/07/19 06:35 10/07/19 06:35 INR, PTT INR 1.60 (0.83-1.09) H 10/03/19 13:50 Assessment/Plan Problem List - Problems (1) NITESH (acute kidney injury) Code(s): N17.9 - ACUTE KIDNEY FAILURE, UNSPECIFIED (2) Leukocytosis Code(s): D72.829 - ELEVATED WHITE BLOOD CELL COUNT, UNSPECIFIED Qualifiers: Leukocytosis type: unspecified Qualified Code(s): D72.829 - Elevated white blood cell count, unspecified (3) Pneumonia Code(s): J18.9 - PNEUMONIA, UNSPECIFIED ORGANISM Qualifiers: Pneumonia type: due to unspecified organism Laterality: left Lung location: lower lobe of lung Qualified Code(s): J18.9 - Pneumonia, unspecified organism (4) Hypertension Code(s): I10 - ESSENTIAL (PRIMARY) HYPERTENSION Assessment/Plan 73 y.o. female with PMH of Pericarditis, s/p lung biopsy and thoracotomy, thymoma s/p resection, HTN, GERD ,(denies DM but started on Metformin for 60 lb weight gain), and chronic LBP presented to the ER with c/o chest pain. PNA Sepsis Leukocytosis Lactic Acidosis Fever NITESH Hx of Pericarditis Hx of Thymoma HTN GERD Hx of Chronic LBP continue current mgmt consider antiinflammatory monitor closely wbc normalized stop abx
--- NOTE | 2019-10-08 11:02 | DS ---
Physical Exam: SUBJECTIVE: Patient seen and examined Medically stable for discharge home without services OBJECTIVE: Vital Signs Period Temp Pulse Resp BP Sys/Lozano Pulse Ox Last 24 Hr 97.1 F-98.6 F 50-82 20-20 132-157/57-80 90 PHYSICAL EXAM Constitutional: Yes: Well Nourished, No Distress, Calm Eyes: Yes: WNL, Conjunctiva Clear HENT: Yes: WNL, Atraumatic, Normocephalic Neck: Yes: WNL, Supple, Trachea Midline Cardiovascular: Yes: WNL, Regular Rate and Rhythm Respiratory: Yes: Regular, CTA Bilaterally, Diminished (at bases) Gastrointestinal: Yes: WNL, Normal Bowel Sounds ...Rectal Exam: Yes: Deferred Genitourinary: Yes: WNL Breast(s): Yes: WNL Musculoskeletal: Yes: WNL Extremities: Yes: WNL Edema: Yes Edema: LLE: Trace, RLE: Trace Peripheral Pulses WNL: Yes Peripheral Pulses: Left Radial: 2+, Right Radial: 2+, Left Doralis Pedis: 2+, Right Dorsalis Pedis: 2+, Left Femoral: 2+, Right Femoral: 2+ Neurological: Yes: WNL, Alert, Oriented ...Motor Strength: WNL Psychiatric: Yes: WNL LABS HOSPITAL COURSE: Date of Admission:10/03/19 Date of Discharge: 10/08/19 - ....Imaging Chest X-ray: Image Reviewed (Left infiltrates persists with underlying atelectasis) Problem List - Problems (1) Pleural effusion Assessment/Plan: small pleural effusion on CT recommended CT f/u in 6-8 weeks c/w home lasix-instructed pt to take daily for 1 week and then resume M/W/Fr Code(s): J90 - PLEURAL EFFUSION, NOT ELSEWHERE CLASSIFIED (2) NITESH (acute kidney injury) Assessment/Plan: baseline cr 1.0-1.2, now 1.1 careful monitoring of Cr on diuretic therapy-lasic 40mg TIW Code(s): N17.9 - ACUTE KIDNEY FAILURE, UNSPECIFIED (3) Diabetes Assessment/Plan: HgbA1C 5.8 BGM AC/HS with novolog sliding scale diabetic diet Code(s): E11.9 - TYPE 2 DIABETES MELLITUS WITHOUT COMPLICATIONS (4) Leukocytosis Assessment/Plan: WBC 18.8 on admission now resolved chest CT with pna completed ceftriaxone and azithromycin course x 5 days leginella Ag negative Code(s): D72.829 - ELEVATED WHITE BLOOD CELL COUNT, UNSPECIFIED Qualifiers: Leukocytosis type: unspecified Qualified Code(s): D72.829 - Elevated white blood cell count, unspecified (5) Pneumonia Assessment/Plan: completed abx for 5 days total inhaled bronchdilators no need for supplemental O2 on dc chest CP, encourage deep breathing and ambulation at home Code(s): J18.9 - PNEUMONIA, UNSPECIFIED ORGANISM Qualifiers: Pneumonia type: due to unspecified organism Laterality: left Lung location: lower lobe of lung Qualified Code(s): J18.9 - Pneumonia, unspecified organism (6) Prophylactic measure Assessment/Plan: FEN tolerating po diabetic diet DVT recieved heparin bid while in patient Dispo maintain as inpatient discharge planning full code Code(s): Z29.9 - ENCOUNTER FOR PROPHYLACTIC MEASURES, UNSPECIFIED (7) Hypertension Assessment/Plan: off BB, diovan restarted yesterday. Cont a home Code(s): I10 - ESSENTIAL (PRIMARY) HYPERTENSION (8) Pleural pain Assessment/Plan: left sided pain on inspiration CXR unchanged roxicodone 5mg q6h for severe pain to aid in taking deep breaths tylenol/motrin for mild-mod pain Code(s): R07.81 - PLEURODYNIA (9) Atelectasis of left lung Assessment/Plan: c/w IS q 1 h hours to aid in lung re-expansion Code(s): J98.11 - ATELECTASIS Medically stable for dc home without services Minutes to complete discharge: 45 Discharge Summary Problems reviewed: Yes Reason For Visit: ACUTE KIDNEY INJURY Current Active Problems NITESH (acute kidney injury) (Acute) Atelectasis (Acute) Atelectasis of left lung (Acute) Diabetes (Acute) Hypotension (Acute) Leukocytosis (Acute) Pleural effusion (Acute) Pleural pain (Acute) Pneumonia (Acute) Prophylactic measure (Acute) Rib pain on left side (Acute) SIRS (systemic inflammatory response syndrome) (Acute) Hospital Course: HOSPITAL COURSE: Date of Admission:10/03/19 Date of Discharge: 10/08/19 - ....Imaging Chest X-ray: Image Reviewed (Left infiltrates persists with underlying atelectasis) Problem List - Problems (1) Pleural effusion Assessment/Plan: small pleural effusion on CT recommended CT f/u in 6-8 weeks c/w home lasix-instructed pt to take daily for 1 week and then resume M/W/Fr Code(s): J90 - PLEURAL EFFUSION, NOT ELSEWHERE CLASSIFIED (2) NITESH (acute kidney injury) Assessment/Plan: baseline cr 1.0-1.2, now 1.1 careful monitoring of Cr on diuretic therapy-lasic 40mg TIW Code(s): N17.9 - ACUTE KIDNEY FAILURE, UNSPECIFIED (3) Diabetes Assessment/Plan: HgbA1C 5.8 BGM AC/HS with novolog sliding scale diabetic diet Code(s): E11.9 - TYPE 2 DIABETES MELLITUS WITHOUT COMPLICATIONS (4) Leukocytosis Assessment/Plan: WBC 18.8 on admission now resolved chest CT with pna completed ceftriaxone and azithromycin course x 5 days leginella Ag negative Code(s): D72.829 - ELEVATED WHITE BLOOD CELL COUNT, UNSPECIFIED Qualifiers: Leukocytosis type: unspecified Qualified Code(s): D72.829 - Elevated white blood cell count, unspecified (5) Pneumonia Assessment/Plan: completed abx for 5 days total inhaled bronchdilators no need for supplemental O2 on dc chest CP, encourage deep breathing and ambulation at home Code(s): J18.9 - PNEUMONIA, UNSPECIFIED ORGANISM Qualifiers: Pneumonia type: due to unspecified organism Laterality: left Lung location: lower lobe of lung Qualified Code(s): J18.9 - Pneumonia, unspecified organism (6) Prophylactic measure Assessment/Plan: FEN tolerating po diabetic diet DVT recieved heparin bid while in patient Dispo maintain as inpatient discharge planning full code Code(s): Z29.9 - ENCOUNTER FOR PROPHYLACTIC MEASURES, UNSPECIFIED (7) Hypertension Assessment/Plan: off BB, diovan restarted yesterday. Cont a home Code(s): I10 - ESSENTIAL (PRIMARY) HYPERTENSION (8) Pleural pain Assessment/Plan: left sided pain on inspiration CXR unchanged roxicodone 5mg q6h for severe pain to aid in taking deep breaths tylenol/motrin for mild-mod pain Code(s): R07.81 - PLEURODYNIA (9) Atelectasis of left lung Assessment/Plan: c/w IS q 1 h hours to aid in lung re-expansion Code(s): J98.11 - ATELECTASIS Medically stable for dc home without services Condition: Improved - Instructions Diet, Activity, Other Instructions: DISCHARGE YOUR VISIT You came to the hospital because you were experiencing substernal chest pain and shortness of breath. You were treated for 5 days with IV antibiotics. An echocardiogram was done that showed a normal ejection fraction, trace mitral regurgitation, trace tricuspid regurgitation. A CT scan of the chest showed a small pleural effusion on left, atelectasis of right and a right nodule in RLL. It is recommended that you have a follow up Ct scan in 3 months MEDICATIONS Please continue to take your home medications as prescribed. There was the following changes: DO NOT TAKE bystolic RESUME all other DIET Continue your home diet ADDITIONAL CARE Please make an appointment to see your primary care provider, [phone] 1 week from today. ADDITIONAL INFORMATION Please call 911 or come directly to the emergency department if you experience unusual headache, vision change, shortness of breath, chest pain, numbness, tingling, loss of alertness/awareness, loss of function, unusual bleeding or any alarming symptoms. Thank you for allowing me to care for you. Robert Pratt, [facility], [facility] [phone] Referrals: Joseph Guerrero MD [Staff Physician] - Iker Ferraro MD [Primary Care Provider] - 2 Weeks (call for appointment) Ziggy Mayberry MD, MD [Staff Physician] - 2 Weeks (call for appointment. Follow up CT of chest in 6-8 weeks) Disposition: HOME - Home Medications Comprehensive Discharge Medication List: Ambulatory Orders Valsartan [Diovan] 320 mg PO DAILY 12/06/12 Cholecalciferol (Vitamin D3) [Vitamin D3] 50 mcg PO DAILY 07/31/14 Aspirin [Aspirin EC] 81 mg PO DAILY 06/02/19 Atorvastatin Ca [Lipitor] 20 mg PO DAILY 06/02/19 Metformin HCl [Glucophage] 1,000 mg PO BID 06/02/19 Ranitidine [Zantac -] 150 mg PO BID 06/02/19 Topiramate [Qudexy Xr] 50 mg PO BID 06/02/19 Furosemide [Lasix] 40 mg PO ASDIR 10/03/19 Potassium Chloride [K-Dur -] 10 meq PO ASDIR 10/03/19 Ibuprofen [Motrin -] 400 mg PO Q6H PRN tablet 10/08/19 Polyethylene Glycol 3350 [Miralax 119 gm Btl -] 17 gm PO DAILY bottle 10/08/19 Valsartan [Diovan] 320 mg PO DAILY tablet 10/08/19 oxyCODONE HCL [Roxicodone -] 5 mg PO Q6H PRN #30 tablet MDD 20mg 10/08/19 Prescription Drug Monitoring Program (I-STOP) results: I-STOP reviewed and no issues identified Problem List - Problems (1) Pleural effusion Code(s): J90 - PLEURAL EFFUSION, NOT ELSEWHERE CLASSIFIED (2) NITESH (acute kidney injury) Code(s): N17.9 - ACUTE KIDNEY FAILURE, UNSPECIFIED (3) Diabetes Code(s): E11.9 - TYPE 2 DIABETES MELLITUS WITHOUT COMPLICATIONS (4) Leukocytosis Code(s): D72.829 - ELEVATED WHITE BLOOD CELL COUNT, UNSPECIFIED Qualifiers: Leukocytosis type: unspecified Qualified Code(s): D72.829 - Elevated white blood cell count, unspecified (5) Pneumonia Code(s): J18.9 - PNEUMONIA, UNSPECIFIED ORGANISM Qualifiers: Pneumonia type: due to unspecified organism Laterality: left Lung location: lower lobe of lung Qualified Code(s): J18.9 - Pneumonia, unspecified organism (6) Prophylactic measure Code(s): Z29.9 - ENCOUNTER FOR PROPHYLACTIC MEASURES, UNSPECIFIED (7) Hypertension Code(s): I10 - ESSENTIAL (PRIMARY) HYPERTENSION (8) Pleural pain Code(s): R07.81 - PLEURODYNIA (9) Atelectasis of left lung Code(s): J98.11 - ATELECTASIS This patient is new to me today: No Emergency Visit: Yes ED Registration Date: 10/03/19 Care time: The patient presented to the Emergency Department on the above date and was hospitalized for further evaluation of their emergent condition. Critical Care patient: No - Discharge Referral Referred to [facility] No
[2019-10-08] MEDS: IBUPROFEN 400 MG TABLET (FP) PO PRN (11:05)
== END 2019-10-08 13:17 | disposition home or self-care (01) | DRG 871 ==
LOC: JER 12:21 → JERBED 15:19 → J5S 17:59 → J6S 10-04 13:08
PROVIDERS: ADMIT Internal Medicine; ATTEND Nurse Practitioner Acute Care
DX: A41.89 Other specified sepsis (principal); J18.1 Lobar pneumonia, unspecified organism; N17.9 Acute kidney failure, unspecified; J98.11 Atelectasis; J90 Pleural effusion, not elsewhere classified; I10 Essential (primary) hypertension; M54.5 Low back pain; J43.9 Emphysema, unspecified; I95.9 Hypotension, unspecified; D72.829 Elevated white blood cell count, unspecified; E11.9 Type 2 diabetes mellitus without complications; Z87.891 Personal history of nicotine dependence; R91.8 Other nonspecific abnormal finding of lung field; K21.9 Gastro-esophageal reflux disease without esophagitis; E78.00 Pure hypercholesterolemia, unspecified
CPT/HCPCS: 36415; 71045-TC-FY; 71046-TC-FY; 71101-TC-LT-FY; 71250-TC; 80053; 82550; 82962; 83036; 83605; 83735; 84100; 84484; 85025; 85027; 85610; 85651; 85730; 86140; 87040; 87899; 93005; 93010; 93306-TC; 94010; 94640; 99285-25; J0131; J1644; J7030

== ENCOUNTER 2020-07-18 04:26 | Day surgery (SDC) | payer OTHER ==
[2020-07-17 09:33] VITALS: BMI 29.8
--- NOTE | 2020-07-17 16:00 | HP ---
Satellite [facility] - Chief Complaint Chief Complaint: right shoulder pain - Past Medical History Allergies/Adverse Reactions: Allergies Allergy/AdvReac Type Severity Reaction Status Date / Time No Known Drug Allergies Allergy Verified 07/17/20 09:33 Cardiovascular: Yes: HTN, Other (Pericarditis ) Pulmonary: Yes: Other (Lt lung Bx / thoracentesis) - Current Medications Current Medications: Home Medications Medication Instructions Recorded Cholecalciferol (Vitamin D3) 50 mcg PO DAILY 07/31/14 [Vitamin D3] Aspirin [Aspirin EC] 81 mg PO DAILY 06/02/19 Atorvastatin Ca [Lipitor] 20 mg PO DAILY 06/02/19 Metformin HCl [Glucophage] 1,000 mg PO BID 06/02/19 Topiramate [Qudexy Xr] 50 mg PO BID 06/02/19 Furosemide [Lasix] 40 mg PO ASDIR 10/03/19 Potassium Chloride [K-Dur -] 10 meq PO ASDIR 10/03/19 Valsartan [Diovan] 320 mg PO DAILY tablet 10/08/19 Famotidine [Pepcid] 40 mg PO DAILY 07/17/20 Satellite Physical Exam - Physical Examination General Appearance: Well Nourished, Well Developed, Alert & Oriented x3 ENT: Clear Lung: Normal air movement Extremities: Other (right shoulder- + ttp, decr rom, + neer, +siu, + empty can, nvi) Neurological: Intact, Alert, Oriented Satellite Impression/Plan - Impression/Plan Impression: right shoulder impingement, rct Operative Procedure: right shoulder arthroscopy with MARIAA, RCR Date to be Performed: 07/18/20
--- OUTSIDE RECORDS SUMMARY | 2020-07-18 04:36 | XMS ---
:1945 Author Organization [facility] Support Name Relationship Address Phone RE, RETIRED Unavailable Unavailable Unavailable RE Unavailable Unavailable Unavailable AUSTIN SPEARS [address] [facility] [place] [address] Re-disclosure Warning The records that you are about to access may contain information from federally- assisted alcohol or drug abuse programs. If such information is present, then the following federally mandated warning applies: This information has been disclosed to you from records protected by federal confidentiality rules (42 CFR part 2). The federal rules prohibit you from making any further disclosure of this information unless further disclosure is expressly permitted by the written consent of the person to whom it pertains or as otherwise permitted by 42 CFR part 2. A general authorization for the release of medical or other information is NOT sufficient for this purpose. The Federal rules restrict any use of the information to criminally investigate or prosecute any alcohol or drug abuse patient.The records that you are about to access may contain highly sensitive health information, the redisclosure of which is protected by Article 27-F of the [facility] Public Health law. If you continue you may haveaccess to information: Regarding HIV / AIDS; Provided by facilities licensed or operated by the [facility] Office of Mental Health; or Provided by the [facility] Office for People With Developmental Disabilities. If such information is present, then the following [facility] mandated warning applies: This information has been disclosed to you from confidential records which are protected by state law. State law prohibits you from making any further disclosure of this information without the specific written consent of the person to whom it pertains, or as otherwise permitted by law. Any unauthorized further disclosure in violation of state law may result in a fine or intermediate sentence or both. A general authorization for the release of medical or other information is NOT sufficient authorization for further disclosure. Insurance Providers Payer name Policy type Policy ID Covered Covered republican's Policy P brandon / Coverage republican ID relationship to [place] [employer] ormation type cardenas [employer] GOLD [id number] SP [id number] PLUS PLAN MEDICARE [id number] SP [id number] [employer] GOLD [id number] PLUS PLAN
[2020-07-18] MEDS ORDERED: ceFAZolin SODIUM 1 GM VIAL ONE ×2 (07:02→08:37)
[2020-07-18] MEDS ORDERED: PROPOFOL 20 ML ONE ×4 (07:04)
[2020-07-18] MEDS ORDERED: ROPIVACAINE HCL 0.5% 30ML VIAL ONE (07:21)
[2020-07-18] MEDS ORDERED: MIDAZOLAM HCL 2 MG/2 ML SINGLE DOSE VIAL ONE ×2 (07:22)
[2020-07-18] MEDS ORDERED: DEXAMETHASONE SOD PHOSPHATE 4 MG/1 ML VIAL ONE (08:41)
[2020-07-18] MEDS ORDERED: ePHEDrine SULFATE 50 MG/1 ML AMPULE ONE (08:46)
[2020-07-18] MEDS ORDERED: EPHEDRINE SULFATE/0.9% NACL/PF 50 MG/10 ML SYRINGE NR ONE (08:46)
[2020-07-18] MEDS ORDERED: KETOROLAC TROMETHAMINE 30 MG/1 ML VIAL ONE (09:20)
--- NOTE | 2020-07-18 09:36 | OP ---
Operative Note - Note: Operative Date: 07/18/20 ([facility]) Pre-Operative Diagnosis: right shoulder rct Operation: right shoulder arthroscopy with RCR, SAD, DCE, EVERT Post-Operative Diagnosis: Same as Pre-op Surgeon: Adalberto Romero Ending Machine Operator: Ziyad Cedillo Anesthesiologist/OSTEOPATHY DOCTOR: Troy Cordero Anesthesia: General, Local Specimens Removed: shavings Estimated Blood Loss (mls): 5
[2020-07-18] MEDS ORDERED: ONDANSETRON 4 MG/2 ML VIAL IVPUSH PRN (09:43)
[2020-07-18] MEDS ORDERED: oxyCODONE HCL 5 MG TABLET PO PRN (09:43)
[2020-07-18 11:02] VITALS: TEMP 97.2
[2020-07-18 11:39] VITALS: BP 168/74; PULSE 64
--- NOTE | 2020-07-18 12:53 | OP ---
DATE OF OPERATION: 07/18/2020 PREOPERATIVE DIAGNOSIS: Right shoulder impingement syndrome, adhesive capsulitis and rotator cuff tear. POSTOPERATIVE DIAGNOSIS: Right shoulder impingement syndrome, adhesive capsulitis and rotator cuff tear. PROCEDURE: Right shoulder arthroscopy, subacromial decompression, distal clavicle excision, manipulation under anesthesia and arthroscopic rotator cuff repair. SURGEON: Zainab Johnson MD BEHAVIORAL TECHNICIAN: KARL Montgomery ANESTHESIOLOGIST: Braxton Cordero MD and Fatoumata Alvarez MD ANESTHESIA: Right interscalene block with LMA anesthesia. DRAINS: None. COMPLICATIONS: None. SPECIMEN: Arthroscopic shavings. BLOOD LOSS: Minimal. BLOOD GIVEN: None. FLUID REPLACEMENT: Plasma-Lyte 1000 mL. INDICATION: This patient is a 74-year-old female with a preoperative diagnosis of right shoulder severe impingement syndrome, small rotator cuff tear and adhesive capsulitis. After understanding the potential risks, complications, alternatives and benefits of surgery versus nonsurgical treatment, the patient elected to undergo this procedure. DESCRIPTION OF PROCEDURE: Patient was given 2 g of IV Ancef. A right interscalene block was performed. She was placed into the beach chair position with ample padding throughout. LMA anesthesia was induced. First I did a manipulation under anesthesia. I was able to feel release of the shoulder capsule and we regained significant/normal forward flexion and abduction which was not present before. I also gained some range of motion, about 15 degrees each of internal and external rotation as well as cross-arm abduction. The posterior capsule was definitely tight. After the manipulation under anesthesia, the patient's right upper extremity was prepped and draped in a sterile fashion. The bony landmarks were marked out with a marking pen. A posterior portal was established. A diagnostic glenohumeral arthroscopy was performed. The patient had some intraarticular blood clots from the manipulation under anesthesia and some synovitis. This was debrided within the glenohumeral joint and the patient clearly had a full-thickness supraspinatus rotator cuff tear. It was in the central portion and was relatively small about the size of a quarter. The rest of the structures inside the joint looked good. Next, our attention was turned to the subacromial space. A lateral portal was established with a spinal needle under direct visualization. The patient had a lot of inflammatory bursitis. The ArthroCare wand was introduced into the subacromial space and a soft tissue bursectomy was performed off the medial, lateral, anterior and posterior aspect of the subacromial bursa including the subdeltoid and subacromial bursa. After this extensive soft tissue debridement, this revealed a very large subacromial and moderate size subclavicular bony spur. These were both taken down with the 5.5-mm oval bur. The bony decompression was fine tuned in reverse and then with a straight shaver. After the distal clavicle excision and the subacromial bone excision, I looked at the AC joint. It looked like there was a good space maintained. The rest of the AC joint did not need to be taken out. The arm was put through a full range of motion. There were no points of impingement. After the complete bursectomy was performed, there was a small tear which was visualized on the top surface and I was able to easily push the metal trocar through it. It was in the central portion of the supraspinatus. Therefore, using all arthroscopic techniques and the Scorpion needle passer, 2 FiberWires were placed through the tear. It was quite mobilizable. It came down to its landing pad appropriately. Then in the standard arthroscopic technique we put in 1 SwiveLock Arthrex anchor with the 4 FiberWire tails, knocked it into the head with the screw. It came down quite nicely, completely covered the head and repaired the tear. The area was copiously irrigated and washed out. The arm was put through a full range of motion. No other points of the rotator cuff were compromised. All instrumentation and excess saline were removed. The arthroscopy portals were closed with 3-0 nylon sutures. Washed, dried, covered with Aquacel dressing. The arm was put into a shoulder immobilizer. Total operative time was about 1 hour. There were no complications during the case. The patient tolerated the procedure quite well and was brought to the ambulatory recovery room in stable condition. ZAINAB JOHNSON M.D. [id number]
--- NOTE | 2020-07-19 17:40 | PATH ---
Surgical Pathology Report Patient Name: KESHAV SPEARS Med. Rec. #: [id number] /Age/Gender: 1945 (Age: 74) / F Account: [id number] Location: [facility] SURGICAL Taken: 07/18/2020 Received: 07/18/2020 Reported: 07/19/2020 Physicians: Adalberto Romero M.D. Specimen(s) Received RIGHT SOULDER SHAVINGS Clinical History Right shoulder tear Final Diagnosis SHOULDER SHAVINGS, RIGHT, ARTHROSCOPY: FRAGMENTS OF BENIGN CARTILAGE, BONE, DENSE FIBROCONNECTIVE TISSUE, ADIPOSE TISSUE, AND SKELETAL MUSCLE. Electronically Signed By Joi Broderick M.D. Gross Description Received in formalin, labeled "right shoulder shavings," is a 4.5 x 3.0 x 0.4 cm. aggregate of izquierdo-yellow soft tissue fragments. A territory account representative portion is submitted in one cassette. 07/18/2020 [facility]07/18/2020
== END 2020-07-18 12:00 | disposition home or self-care (01) ==
LOC: JASU-SURG 04:26
PROVIDERS: ATTEND Orthopaedic Surgery
PROC: 0LQ14ZZ Repair Right Shoulder Tendon, Percutaneous Endoscopic Approach (ICD-10-PCS; principal; 2020-07-18 08:00)
PROC: 0RHJ44Z Insertion of Internal Fixation Device into Right Shoulder Joint, Percutaneous Endoscopic Approach (ICD-10-PCS; 2020-07-18 08:00)
PROC: 0PB94ZZ Excision of Right Clavicle, Percutaneous Endoscopic Approach (ICD-10-PCS; 2020-07-18 08:00)
DX: M75.101 Unspecified rotator cuff tear or rupture of right shoulder, not specified as traumatic (principal); M75.41 Impingement syndrome of right shoulder; M75.01 Adhesive capsulitis of right shoulder
CPT/HCPCS: 82962; 88304-TC; 94760

== ENCOUNTER 2022-10-08 04:03 | Day surgery (SDC) | payer OTHER ==
[2022-10-02 13:54] VITALS: BMI 28.1
[2022-10-08 11:49] VITALS: TEMP 97.5
[2022-10-08 12:40] VITALS: BP 153/54; PULSE 49; RESP 20
== END 2022-10-08 13:03 | disposition home or self-care (01) ==
LOC: JASU-ENDO 04:03
PROVIDERS: ATTEND Internal Medicine Gastroenterology
PROC: 0DB98ZX Excision of Duodenum, Via Natural or Artificial Opening Endoscopic, Diagnostic (ICD-10-PCS; 2022-10-08)
PROC: 0DB68ZX Excision of Stomach, Via Natural or Artificial Opening Endoscopic, Diagnostic (ICD-10-PCS; 2022-10-08)
PROC: 0DJD8ZZ Inspection of Lower Intestinal Tract, Via Natural or Artificial Opening Endoscopic (ICD-10-PCS; principal; 2022-10-08 11:00)
DX: Z12.11 Encounter for screening for malignant neoplasm of colon (principal); Z86.010 Personal history of colon polyps; K29.50 Unspecified chronic gastritis without bleeding; K31.89 Other diseases of stomach and duodenum; L92.2 Granuloma faciale [eosinophilic granuloma of skin]; K57.30 Diverticulosis of large intestine without perforation or abscess without bleeding; K64.8 Other hemorrhoids
CPT/HCPCS: 43239; G0105; 82962; 88305-TC; 88342-TC